=== PATIENT | male | born 1935 | race Caucasian/White ===

== ENCOUNTER 2018-01-15 11:28 | Inpatient (IN) ==
[2018-01-15 12:32] LABS: Basophils % 0.3 %; Eosinophils # 0.3 K/mcL (0.0-0.6); Eosinophils % 4.8 %; Hematocrit 31.3 % (37.5-50.1); Hemoglobin 9.9 g/dL (12.9-16.9); Immature Granulocytes % 0.2 % (0-4); Lymphocytes # 1.2 K/mcL (0.6-4.6); Lymphocytes % 19.9 %; Mean Corpuscular HGB Conc 31.6 g/dL (31.6-35.5); Mean Corpuscular Hemoglobin 33.6 pg (28.0-33.3); Mean Corpuscular Volume 106.1 fL (83.0-100.0); Mean Platelet Volume 11.2 fL (9.4-12.4); Monocytes # 0.8 K/mcL (0.0-1.3); Neutrophils # 3.9 K/mcL (1.6-8.9); Platelet Count 134 K/mcL (140-400); Red Blood Count 2.95 M/mcL (4.19-5.50); Red Cell Distribution Width 16.2 % (11.5-14.5); Segmented Neutrophils % 61.8 %
[2018-01-15 12:51] LABS: Troponin I 0.03 ng/mL (< 0.04)
[2018-01-15 12:59] LABS: Calcium 9.5 mg/dL (8.6-10.3); Potassium 4.5 mEq/L (3.5-5.1)
[2018-01-15] MEDS ORDERED: Furosemide 40 MG/4 ML VIAL IVP ONE (18:12)
--- NOTE | 2018-01-15 18:54 | Emergency Department Note ---
Disposition Clinical Impression: Scrotal swelling Fluid overload Qualifiers: Hypervolemia type: unspecified Qualified Code(s): E87.70 - Fluid overload, unspecified Leg wound, left Qualifiers: Encounter type: subsequent encounter Qualified Code(s): S81.802D - Unspecified open wound, left lower leg, subsequent encounter Disposition: Admitted As Inpatient Condition: Good Referrals: Karma Briseno [Primary Care Provider] - Forms: ED Satisfaction Letter Time of Disposition: 21:19 General Adult HPI - General Chief complaint: ED Shortness of Breath/Dyspnea Stated complaint: "quinn,swelling in legs,scrotum,abd" Source: patient, family Limitations: no limitations Nursing Notes Reviewed: Yes Vital Signs Reviewed: Yes - History of Present Illness HPI Narrative: Patient is an 82-year-old male that presents the emergency department with swelling of the lower extremities, genitals and lower abdomen. Patient states that this is been an ongoing issue for the past 6 months. However he states that he had been placed on Lasix and this was relatively well controlled until the past couple weeks. He states that he has been gaining a few pounds a week and this past week has gained 7 pounds. He states that when he starts to retain fluid he becomes more short of breath. Patient states that he was at an outside facility and was offered admission however he did not want to be admitted at that time because he did not anticipate that he was going to be admitted to the hospital when he went to the ER. However after talking to the patient today he is in agreement with being admitted to the hospital if we feel that this is necessary. Pain Scale: 0 - Related Data Home Medications Medication Instructions Recorded Confirmed Atenolol [Tenormin] 50 mg PO DAILY 01/11/18 01/15/18 Furosemide [Lasix] 20 mg PO BID 01/11/18 01/15/18 Loratadine [Claritin] 10 mg PO DAILY 01/11/18 01/15/18 Quinapril HCl [Accupril] 40 mg PO DAILY 01/11/18 01/15/18 hydroCHLOROthiazide 25 mg PO DAILY 01/11/18 01/15/18 [Hydrochlorothiazide] Aspirin Enteric Coated [Aspirin EC] 81 mg PO DAILY 01/15/18 01/15/18 Potassium Chloride [K-Tab ER] 20 meq PO DAILY 01/15/18 01/15/18 metOLazone [Zaroxolyn] 5 mg PO 2XW 01/15/18 01/15/18 Allergies Allergy/AdvReac Type Severity Reaction Status Date / Time No Known Allergies Allergy Verified 01/11/18 16:00 All systems ED: reviewed and negative except as stated. Constitutional: Reports: weight change Cardiovascular: Denies: chest pain Respiratory: Reports: dyspnea Gastrointestinal: Denies: abdominal pain, nausea, vomiting Past Medical History - Past Medical History Medical history: Reports: hypertension Psychiatric history: Reports: no psych history - Social History Smoking Status: Never smoker Smokeless Tobacco Status: No Alcohol use: Reports: none Drug use: Reports: none Physical Exam - General Limitations: no limitations General appearance: alert, in no apparent distress - Head Head exam: atraumatic, normocephalic - Eye Eye exam: Present: normal appearance, EOMI - Neck Neck exam: Present: normal inspection, full ROM, trachea midline - Respiratory Respiratory exam: Present: wheezes (Bilaterally). 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 Patient also has 2+ pitting edema and bilateral lower extremities all the way up into the thigh.) - Neurological Exam Neurological exam: Present: alert, oriented X3 - Psychiatric Psychiatric exam: Present: normal affect, normal mood - Skin Skin exam: Present: other (Patient is a large ulceration on the left lower extremity. Patient has multiple skin lesions on his face.) Course Vital Signs Temperature 97.6 F 01/15/18 11:40 Pulse Rate 68 01/15/18 11:40 Respiratory Rate 18 01/15/18 11:40 Blood Pressure 139/60 01/15/18 11:40 O2 Sat by Pulse Oximetry 94 01/15/18 11:40 Temperature 97.6 F 01/15/18 11:40 Pulse Rate 68 01/15/18 11:40 Respiratory Rate 18 01/15/18 11:40 Blood Pressure 139/60 01/15/18 11:40 O2 Sat by Pulse Oximetry 100 01/15/18 18:30 Medical Decision Making - [facility] Narrative Medical decision making narrative: Due to the patient presenting with increased shortness of breath and likely fluid overload we will obtain CBC, BMP, troponin, chest x-ray EKG and a BNP. The patient's EKG showed atrial fibrillation. The patient does appear to have an elevated BNP at 1060.Troponin was negative. The patient is mildly anemic at 9.9. The patient will be given a dose of Lasix here in the emergency department. Due to the patient having a large wound on his left leg will obtain wound cultures as well as placed the patient on clindamycin here in the emergency department. I feel this patient is fluid overloaded. The patient will need to be admitted to the hospital for further evaluation and management. Consult the hospitalist and they have accepted the patient to their service. The patient will be admitted to the hospital this time for further evaluation and management. - Lab Data Lab results reviewed: Yes I reviewed the patient's lab results. Result diagrams: 01/15/18 12:12 01/15/18 12:12 Lab Results 01/15/18 01/15/18 01/15/18 Range/Units 12:12 12:12 12:12 WBC 6.2 (4.3-11.1) K/mcL RBC 2.95 L (4.19-5.50) M/mcL Hgb 9.9 L (12.9-16.9) g/dL Hct 31.3 L (37.5-50.1) % MCV 106.1 H (83.0-100.0) fL MCH 33.6 H (28.0-33.3) pg MCHC 31.6 (31.6-35.5) g/dL RDW 16.2 H (11.5-14.5) % Plt Count 134 L (140-400) K/mcL MPV 11.2 (9.4-12.4) fL Immature Gran % 0.2 (0-4) % Seg Neutrophils % 61.8 % Lymphocytes % 19.9 % Monocytes % 13.0 % Eosinophils % 4.8 % Basophils % 0.3 % Neutrophils # 3.9 (1.6-8.9) K/mcL Lymphocytes # 1.2 (0.6-4.6) K/mcL Monocytes # 0.8 (0.0-1.3) K/mcL Eosinophils # 0.3 (0.0-0.6) K/mcL Basophils # 0.0 (0.0-0.2) K/mcL Sodium 137 (136-145) mEq/L Potassium 4.5 (3.5-5.1) mEq/L Chloride 102 (98-107) mEq/L Carbon Dioxide 27 (23-29) mEq/L BUN 59 H (8-23) mg/dL Creatinine 2.30 H (0.70-1.30) mg/dL Est GFR ( Amer) 33 L (> 60) Est GFR (Non-Af Amer) 27 L (> 60) BUN/Creatinine Ratio 26 (6-26) Glucose 100 (70-105) mg/dL Calculated Osmolality 301 H (280-300) Lactic Acid 1.0 (0.5-2.2) mmol/L Calcium 9.5 (8.6-10.3) mg/dL Troponin I 0.03 (< 0.04) ng/mL B-Natriuretic Peptide (Less than 100) pg/mL 01/15/18 Range/Units 12:12 WBC (4.3-11.1) K/mcL RBC (4.19-5.50) M/mcL Hgb (12.9-16.9) g/dL Hct (37.5-50.1) % MCV (83.0-100.0) fL MCH (28.0-33.3) pg MCHC (31.6-35.5) g/dL RDW (11.5-14.5) % Plt Count (140-400) K/mcL MPV (9.4-12.4) fL Immature Gran % (0-4) % Seg Neutrophils % % Lymphocytes % % Monocytes % % Eosinophils % % Basophils % % Neutrophils # (1.6-8.9) K/mcL Lymphocytes # (0.6-4.6) K/mcL Monocytes # (0.0-1.3) K/mcL Eosinophils # (0.0-0.6) K/mcL Basophils # (0.0-0.2) K/mcL Sodium (136-145) mEq/L Potassium (3.5-5.1) mEq/L Chloride (98-107) mEq/L Carbon Dioxide (23-29) mEq/L BUN (8-23) mg/dL Creatinine (0.70-1.30) mg/dL Est GFR ( Amer) (> 60) Est GFR (Non-Af Amer) (> 60) BUN/Creatinine Ratio (6-26) Glucose (70-105) mg/dL Calculated Osmolality (280-300) Lactic Acid (0.5-2.2) mmol/L Calcium (8.6-10.3) mg/dL Troponin I (< 0.04) ng/mL B-Natriuretic Peptide 1060 H (Less than 100) pg/mL - Radiology Data Radiology results reviewed: Yes I reviewed the patient's radiology results. Chest X-Ray 01/15/18 11:46 IMPRESSION: Stable exam from 01/11/2018 with mild pulmonary vascular congestion without overt pulmonary edema along with small right pleural effusion and mild likely bibasilar atelectasis. Stable cardiomegaly. D/ / 01/15/2018 14:09:41 Ezio Mon MD / [facility] Interpreting Provider: Ezio Mon MD - EKG Data EKG #1 EKG attestation: Yes I reviewed and interpreted this EKG. EKG results narrative: Patient's EKG shows atrial fibrillation at a rate of 62 bpm, QRS duration 92, QTC of 411. There is no evidence of STEMI on EKG.
[2018-01-15] MEDS ORDERED: Clindamycin 600 MG/50 ML 600 MG/50 ML IV.SOLN IVPB ONE (19:53)
--- NOTE | 2018-01-15 22:30 | Emergency Department Note ---
Disposition Clinical Impression: Scrotal swelling Fluid overload Qualifiers: Hypervolemia type: unspecified Qualified Code(s): E87.70 - Fluid overload, unspecified Leg wound, left Qualifiers: Encounter type: subsequent encounter Qualified Code(s): S81.802D - Unspecified open wound, left lower leg, subsequent encounter Disposition: Admitted As Inpatient Condition: Good General Adult HPI - General Chief complaint: ED Shortness of Breath/Dyspnea Stated complaint: "quinn,swelling in legs,scrotum,abd" Source: patient, family Limitations: no limitations - History of Present Illness Pain Scale: 3 - Related Data Home Medications Medication Instructions Recorded Confirmed Atenolol [Tenormin] 50 mg PO DAILY 01/11/18 01/15/18 Furosemide [Lasix] 20 mg PO BID 01/11/18 01/15/18 Loratadine [Claritin] 10 mg PO DAILY 01/11/18 01/15/18 Quinapril HCl [Accupril] 40 mg PO DAILY 01/11/18 01/15/18 hydroCHLOROthiazide 25 mg PO DAILY 01/11/18 01/15/18 [Hydrochlorothiazide] Aspirin Enteric Coated [Aspirin EC] 81 mg PO DAILY 01/15/18 01/15/18 Potassium Chloride [K-Tab ER] 20 meq PO DAILY 01/15/18 01/15/18 metOLazone [Zaroxolyn] 5 mg PO 2XW 01/15/18 01/15/18 Allergies Allergy/AdvReac Type Severity Reaction Status Date / Time No Known Allergies Allergy Verified 01/11/18 16:00 Constitutional: Reports: weight change Cardiovascular: Denies: chest pain Respiratory: Reports: dyspnea Gastrointestinal: Denies: abdominal pain, nausea, vomiting Integumentary: Reports: other Past Medical History - Past Medical History Medical history: Reports: hypertension Psychiatric history: Reports: no psych history - Social History Smoking Status: Never smoker Smokeless Tobacco Status: No Alcohol use: Reports: none Drug use: Reports: none Physical Exam - General Limitations: no limitations General appearance: alert, in no apparent distress Course Vital Signs Temperature 97.6 F 01/15/18 11:40 Pulse Rate 68 01/15/18 11:40 Respiratory Rate 18 01/15/18 11:40 Blood Pressure 139/60 01/15/18 11:40 O2 Sat by Pulse Oximetry 94 01/15/18 11:40 Temperature 97.5 F L 01/15/18 22:13 Pulse Rate 77 01/15/18 22:13 Respiratory Rate 16 01/15/18 22:13 Blood Pressure 108/38 01/15/18 22:13 O2 Sat by Pulse Oximetry 93 01/15/18 22:13 Oxygen Delivery Oxygen Delivery Room Air Medical Decision Making - Lab Data Result diagrams: 01/15/18 12:12 01/15/18 12:12 Lab Results 01/15/18 01/15/18 01/15/18 Range/Units 12:12 12:12 12:12 WBC 6.2 (4.3-11.1) K/mcL RBC 2.95 L (4.19-5.50) M/mcL Hgb 9.9 L (12.9-16.9) g/dL Hct 31.3 L (37.5-50.1) % MCV 106.1 H (83.0-100.0) fL MCH 33.6 H (28.0-33.3) pg MCHC 31.6 (31.6-35.5) g/dL RDW 16.2 H (11.5-14.5) % Plt Count 134 L (140-400) K/mcL MPV 11.2 (9.4-12.4) fL Immature Gran % 0.2 (0-4) % Seg Neutrophils % 61.8 % Lymphocytes % 19.9 % Monocytes % 13.0 % Eosinophils % 4.8 % Basophils % 0.3 % Neutrophils # 3.9 (1.6-8.9) K/mcL Lymphocytes # 1.2 (0.6-4.6) K/mcL Monocytes # 0.8 (0.0-1.3) K/mcL Eosinophils # 0.3 (0.0-0.6) K/mcL Basophils # 0.0 (0.0-0.2) K/mcL Sodium 137 (136-145) mEq/L Potassium 4.5 (3.5-5.1) mEq/L Chloride 102 (98-107) mEq/L Carbon Dioxide 27 (23-29) mEq/L BUN 59 H (8-23) mg/dL Creatinine 2.30 H (0.70-1.30) mg/dL Est GFR ( Amer) 33 L (> 60) Est GFR (Non-Af Amer) 27 L (> 60) BUN/Creatinine Ratio 26 (6-26) Glucose 100 (70-105) mg/dL Calculated Osmolality 301 H (280-300) Lactic Acid 1.0 (0.5-2.2) mmol/L Calcium 9.5 (8.6-10.3) mg/dL Troponin I 0.03 (< 0.04) ng/mL B-Natriuretic Peptide (Less than 100) pg/mL 01/15/18 Range/Units 12:12 WBC (4.3-11.1) K/mcL RBC (4.19-5.50) M/mcL Hgb (12.9-16.9) g/dL Hct (37.5-50.1) % MCV (83.0-100.0) fL MCH (28.0-33.3) pg MCHC (31.6-35.5) g/dL RDW (11.5-14.5) % Plt Count (140-400) K/mcL MPV (9.4-12.4) fL Immature Gran % (0-4) % Seg Neutrophils % % Lymphocytes % % Monocytes % % Eosinophils % % Basophils % % Neutrophils # (1.6-8.9) K/mcL Lymphocytes # (0.6-4.6) K/mcL Monocytes # (0.0-1.3) K/mcL Eosinophils # (0.0-0.6) K/mcL Basophils # (0.0-0.2) K/mcL Sodium (136-145) mEq/L Potassium (3.5-5.1) mEq/L Chloride (98-107) mEq/L Carbon Dioxide (23-29) mEq/L BUN (8-23) mg/dL Creatinine (0.70-1.30) mg/dL Est GFR ( Amer) (> 60) Est GFR (Non-Af Amer) (> 60) BUN/Creatinine Ratio (6-26) Glucose (70-105) mg/dL Calculated Osmolality (280-300) Lactic Acid (0.5-2.2) mmol/L Calcium (8.6-10.3) mg/dL Troponin I (< 0.04) ng/mL B-Natriuretic Peptide 1060 H (Less than 100) pg/mL Attestation Statement - Attestation Attestation: I examined this patient and my medical decision-making was reviewed with the Resident Physician. I agree with the documented findings, disposition and treatment plan as described except to the extent set forth below. Anasarca, acute kidney injury, infected leg ulcer. Refused admission and a Ivy a couple of days ago. On the appearance of the leg ulcer is not bad (some granulating tissue, pink not red tissue surrounding the ulcer without temperature change), the odor is unmistakable. Management discussed in detail with Dr. Read, admitted for further treatment.
[2018-01-15] MEDS ORDERED: Acetaminophen 325 MG TABLET PO PRN (23:38)
[2018-01-15] MEDS ORDERED: Naloxone 0.4 MG/ML INJ IVP PRN (23:38)
--- NOTE | 2018-01-16 00:30 | Internal Med History&Physical ---
Date of Encounter: 01/15/18 Time of Encounter: 22:00 Internal Medicine - H&P: HPI Chief complaint: Bilateral legs and scrotum swelling Admitted From: Home Plans for Post Hospital Care: Home History of present illness: Mr. Mazariegos is a 82 year old male presented to ER for bilateral leg and scrotum swelling for 7 days. Past medical history is significant for A. fib and hypertension and skin cancer. Patient said he was told possibly he has congestive heart failure but not confirmed. He started to have increased leg and scrotum swelling for 7 days. With a mild shortness of breath, especially on exertion. Patient had increased the weight for 7 pounds in last 7 days. Patient denies chest pain. Patient has a mild chronic cough. Patient also has a left lower extremity wound for about 20 years. Past Med Surg Social Fam HX - Past Medical History Medical history: atrial fibrillation, hypertension Psychiatric history: no psych history - Social History Smoking Status: Never smoker Smokeless Tobacco Status: No Alcohol use: none Drug use: none - Family History Father Hx Family Cancer: Yes Internal Medicine - H&P: Meds Atenolol [Tenormin] 50 mg PO DAILY 01/11/18 [History] Furosemide [Lasix] 20 mg PO BID 01/11/18 [History] Loratadine [Claritin] 10 mg PO DAILY 01/11/18 [History] Quinapril HCl [Accupril] 40 mg PO DAILY 01/11/18 [History] hydroCHLOROthiazide [Hydrochlorothiazide] 25 mg PO DAILY 01/11/18 [History] Aspirin Enteric Coated [Aspirin EC] 81 mg PO DAILY 01/15/18 [History] Potassium Chloride [K-Tab ER] 20 meq PO DAILY 01/15/18 [History] metOLazone [Zaroxolyn] 5 mg PO 2XW 01/15/18 [History] 3 Allergy/AdvReac Type Severity Reaction Status Date / Time No Known Allergies Allergy Verified 01/11/18 16:00 All Systems PM: A 10-system review of systems was performed and is negative for pertinent findings except as documented above in the HPI. - Constitutional Vitals: Temp Pulse Resp BP Pulse Ox 97.5 F L 77 16 108/38 93 01/15/18 22:13 01/15/18 22:13 01/15/18 22:13 01/15/18 22:13 01/15/18 22:13 General appearance: Present: A&O X 3, no acute distress, answers questions appropriately - Head Head exam: Present: atraumatic, normocephalic - Eye Eye exam: Present: PERRL, conjuntiva pink, sclera anicteric Pupils: Present: PERRL - Neck Neck exam general surgery: Present: supple, trachea midline. Absent: lymphadenopathy - Respiratory Respiratory exam: Present: CTAB. Absent: accessory muscle use, rales, rhonchi, wheezes - Cardiovascular Cardiovascular exam: Present: irregular rhythm, +S1, +S2. Absent: diastolic murmur, gallop, rubs, systolic murmur - GI/Abdominal GI/Abdominal exam: Present: normal bowel sounds, soft, no peritoneal signs. Absent: distended, tenderness - Extremities Exam Extremities exam: Present: pedal edema (Bilateral moderate to severe pitting edema with scrotum edema), warm, radial pulses palpable and symmetrical. Absent : calf tenderness, cyanotic Additional comments: Chronic wound on left lower leg, well dressed - Neurological Exam Neurological exam: Present: CN II-XII intact, oriented X3, no focal deficits. Absent: pronater drift, facial droop, speech deficit - Skin Skin exam: Present: dry, intact Internal Med - H&P Results - Labs CBC & Chem 7: 01/15/18 12:12 01/15/18 12:12 - Assessment and plan (1) CHF exacerbation Current Visit: Yes Status: Acute Assessment and plan: Patient has elevated BNP, increased bilateral leg and scrotum swelling. Chest x -ray shows pulmonary vascular congestion. Consider CHF exacerbation. - Place patient on Lasix IV 40 mg daily - Strict I and O. Fluid restriction diet. - Check echo in a.m. Qualifiers: Heart failure type: unspecified Qualified Code(s): I50.9 - Heart failure, unspecified (2) CKD (chronic kidney disease) Current Visit: Yes Status: Acute Assessment and plan: Creatinine level (2.3) is similar with that on 01/11. Remote baseline is 1.2. Closely monitor renal function and avoid the nephrotoxic medications Qualifiers: Chronic kidney disease stage: stage 4 (severe) Qualified Code(s): N18.4 - Chronic kidney disease, stage 4 (severe) (3) Leg wound, left Current Visit: Yes Status: Acute Assessment and plan: Patient said he has this chronic wound for 20 years. Patient has no systemic infection signs. We will consult wound care for further management. Qualifiers: Encounter type: subsequent encounter Qualified Code(s): S81.802D - Unspecified open wound, left lower leg, subsequent encounter (4) Atrial fibrillation Current Visit: No Status: Acute Assessment and plan: Patient said that he has A. fib for 20 years. He has discussed the with his cardiology regarding blood thinner use previously and he would not like to start blood thinner. Heart rate is well controlled. Patient is on aspirin, will continue Qualifiers: Atrial fibrillation type: chronic Qualified Code(s): I48.2 - Chronic atrial fibrillation (5) DVT prophylaxis Current Visit: Yes Status: Acute Assessment and plan: Heparin subcutaneously - Time Spent With Patient Total time spent is greater than 50% in coordination of care (as documented) at patient's floor/unit and/or counseling patient: 40 minutes Greater than 35 minutes
[2018-01-16] MEDS: *HR* Heparin 5,000 UNIT/ML VIAL SQ SCH ×2 (05:08→17:43)
[2018-01-16 06:00] LABS: Basophils % 0.4 %; Eosinophils # 0.3 K/mcL (0.0-0.6); Eosinophils % 6.3 %; Hematocrit 29.1 % (37.5-50.1); Hemoglobin 9.2 g/dL (12.9-16.9); Immature Granulocytes % 0.2 % (0-4); Lymphocytes # 0.9 K/mcL (0.6-4.6); Lymphocytes % 17.9 %; Mean Corpuscular HGB Conc 31.6 g/dL (31.6-35.5); Mean Corpuscular Hemoglobin 33.5 pg (28.0-33.3); Mean Corpuscular Volume 105.8 fL (83.0-100.0); Mean Platelet Volume 11.6 fL (9.4-12.4); Monocytes # 0.8 K/mcL (0.0-1.3); Monocytes % 15.6 %; Platelet Count 118 K/mcL (140-400); Red Blood Count 2.75 M/mcL (4.19-5.50); Red Cell Distribution Width 16.1 % (11.5-14.5); Segmented Neutrophils % 59.6 %
[2018-01-16 06:23] LABS: Magnesium 1.8 mg/dL (1.6-2.6); Potassium 4.1 mEq/L (3.5-5.1)
--- NOTE | 2018-01-16 07:16 | Electrocardiograph Report ---
[facility] Test Date: 2018-01-15 Pat Name: Ferdinand Mazariegos Department: 104 Room: 3B65 Gender: M [employer]: TMR : 1935 Requested By: Aidan James Order Number: [id number] Reading MD: Ambrosio Villafana Measurements Intervals [place] Rate: 62 P: [place]: 0 QRS: -73 QRSD: 92 T: 44 QT: 405 QTc: 411 Interpretive Statements ATRIAL FIBRILLATION LEFT ANTERIOR FASCICULAR BLOCK INFERIOR MYOCARDIAL INFARCTION, PROBABLY OLD ANTEROSEPTAL MYOCARDIAL INFARCTION, PROBABLY OLD Electronically Signed On 01-16-2018 7:15:14 EDT by Ambrosio Villafana
[2018-01-16] MEDS: Aspirin Enteric Coated 81 MG Tablet PO SCH (09:44)
[2018-01-16] MEDS: Lisinopril 20 MG TABLET PO SCH (09:44)
[2018-01-16] MEDS: hydroCHLOROthiazide 25 MG TABLET PO SCH (09:44)
[2018-01-16] MEDS: Loratadine 10 MG TABLET PO SCH (09:44)
[2018-01-16] MEDS: Furosemide 40 MG/4 ML VIAL IVP SCH (09:45)
--- NOTE | 2018-01-16 20:02 | Internal Med Progress Note ---
Date of Encounter: 01/16/18 Time of Encounter: 11:00 - Assessment and plan (1) CHF exacerbation Current Visit: Yes Status: Acute Assessment and plan: Previous BNP was 796 presented to ER with BNP of 1060. Apparently patient has a history of CHF and he has been noncompliant with medical care and medications. He continues to have bilateral lower extremity swelling as well as scrotal swelling. Chest x-ray does show pulmonary vascular congestion. We will continue to diurese the patient with 40 mg of Lasix continue to monitor creatinine closely since cranny is elevated. Strict LOC we will place on fluid restriction Daily weights Echo has been completed awaiting results Consult cardiology pending results of echo Oxygen as needed Monitor electrolytes Patient is able to urinate at this time however he may require Anaya placement due to swelling Qualifiers: Heart failure type: unspecified Qualified Code(s): I50.9 - Heart failure, unspecified (2) Atrial fibrillation Current Visit: No Status: Acute Assessment and plan: Patient said that he has A. fib for 20 years. He has discussed the with his cardiology regarding blood thinner use previously and he would not like to start blood thinner. Heart rate is well controlled. Patient is on aspirin, will continue Qualifiers: Atrial fibrillation type: chronic Qualified Code(s): I48.2 - Chronic atrial fibrillation (3) Leg wound, left Current Visit: Yes Status: Acute Assessment and plan: Patient said he has this chronic wound for 20 years. Patient has no systemic infection signs. We will consult wound care for further management. Qualifiers: Encounter type: subsequent encounter Qualified Code(s): S81.802D - Unspecified open wound, left lower leg, subsequent encounter (4) CKD (chronic kidney disease) Current Visit: Yes Status: Acute Assessment and plan: Creatinine level (2.3) is similar with that on 01/11. Remote baseline is 1.2. We will monitor creatinine Continue to diurese patient. Consult nephrology as needed Avoid nephrotoxins Qualifiers: Chronic kidney disease stage: stage 4 (severe) Qualified Code(s): N18.4 - Chronic kidney disease, stage 4 (severe) (5) DVT prophylaxis Current Visit: Yes Status: Acute - Time Spent With Patient Total time spent is greater than 50% in coordination of care (as documented) at patient's floor/unit and/or counseling patient: - Subjective Interval history: This patient is new to me I did review medical records. According to EC W it appears the patient was at the emergency department on 01/11 with increasing swelling especially stents will region and having difficulty urinating. According to primary care visit appears the patient has had a 418 pound weight gain since 10/27/17. According to primary care records patient does have CHF is currently taking Lasix however patient is noncompliant does not monitor fluid or sodium intake. According to PCP records patient has not been compliant with medical care. He does have a history of CHF A. fib and renal failure. Apparently when patient was evaluated by the ER physician on it was suggested that he be admitted for further evaluations however patient left AGAINST MEDICAL ADVICE. Lab work in the ER at that time showed a BNP of 796 EKG with A. fib and renal failure. He presented to ER with complaints of lower shimmy swelling as well as scrotal swelling Patient continues to have lower extremity swelling as well as scrotal swelling. He has area on his leg that is weeping. He denies any pain or discomfort at this time. He does report that his breathing has improved - Constitutional Vitals: Temp Pulse Resp BP Pulse Ox 97.9 F 69 16 114/52 97 01/16/18 19:00 01/16/18 19:00 01/16/18 19:00 01/16/18 19:00 01/16/18 19:00 General appearance: Present: A&O X 3, no acute distress, answers questions appropriately - Head Head exam: Present: atraumatic, normocephalic - Eye Eye exam: Present: PERRL, conjuntiva pink, sclera anicteric Pupils: Present: PERRL - Neck Neck exam general surgery: Present: supple, trachea midline. Absent: lymphadenopathy - Respiratory Respiratory exam: Present: CTAB. Absent: accessory muscle use, rales, rhonchi, wheezes - Cardiovascular Cardiovascular exam: Present: RRR, +S1, +S2. Absent: diastolic murmur, gallop, rubs, systolic murmur - GI/Abdominal GI/Abdominal exam: Present: normal bowel sounds, soft, no peritoneal signs. Absent: distended, tenderness - exam: Present: scrotal swelling External exam: Present: swelling - Extremities Exam Extremities exam: Present: pedal edema, warm, radial pulses palpable and symmetrical. Absent: calf tenderness, cyanotic Additional comments: +2 pitting edema up to thighs bilaterally left lower leg jasbir Internal Medicine: Result - Labs CBC & Chem 7: 01/16/18 05:40 01/16/18 05:40 Labs: Short CBC 01/16/18 Range/Units 05:40 WBC 5.1 (4.3-11.1) K/mcL Hgb 9.2 L (12.9-16.9) g/dL Hct 29.1 L (37.5-50.1) % Plt Count 118 L (140-400) K/mcL Neutrophils # 3.0 (1.6-8.9) K/mcL BMP 01/16/18 05:40 Sodium 140 Potassium 4.1 Chloride 105 Carbon Dioxide 28 BUN 59 H Creatinine 2.22 H Glucose 92 Calcium 9.0 Consult Discharge Plan - Plan Referrals: Karma Briseno [Primary Care Provider] -
[2018-01-17] MEDS: *HR* Heparin 5,000 UNIT/ML VIAL SQ SCH ×2 (06:15→17:42)
[2018-01-17] MEDS: Furosemide 40 MG/4 ML VIAL IVP SCH (08:35)
[2018-01-17] MEDS: hydroCHLOROthiazide 25 MG TABLET PO SCH (08:35)
[2018-01-17] MEDS: Aspirin Enteric Coated 81 MG Tablet PO SCH (08:35)
[2018-01-17] MEDS: Lisinopril 20 MG TABLET PO SCH (08:35)
[2018-01-17] MEDS: Loratadine 10 MG TABLET PO SCH (08:35)
--- NOTE | 2018-01-17 10:17 | Internal Med Progress Note ---
Date of Encounter: 01/17/18 Time of Encounter: 10:17 - Assessment and plan (1) CHF exacerbation Current Visit: Yes Status: Acute Assessment and plan: Previous BNP was 796 presented to ER with BNP of 1060. Apparently patient has a history of CHF and he has been noncompliant with medical care and medications. He continues to have bilateral lower extremity swelling as well as scrotal swelling. Chest x-ray does show pulmonary vascular congestion. We will continue to diurese the patient with 40 mg of Lasix continue to monitor creatinine closely since cranny is elevated. Strict LOC we will place on fluid restriction Daily weights Echo has been completed awaiting results Consult cardiology Oxygen as needed Monitor electrolytes Patient is able to urinate at this time however he may require Anaya placement due to swelling Qualifiers: Heart failure type: unspecified Qualified Code(s): I50.9 - Heart failure, unspecified (2) Atrial fibrillation Current Visit: No Status: Acute Assessment and plan: Patient said that he has A. fib for 20 years. He has discussed the with his cardiology regarding blood thinner use previously and he would not like to start blood thinner. Heart rate is well controlled. Patient is on aspirin, will continue Qualifiers: Atrial fibrillation type: chronic Qualified Code(s): I48.2 - Chronic atrial fibrillation (3) Leg wound, left Current Visit: Yes Status: Acute Assessment and plan: Patient said he has this chronic wound for 20 years. Patient has no systemic infection signs. We will consult wound care for further management. Qualifiers: Encounter type: subsequent encounter Qualified Code(s): S81.802D - Unspecified open wound, left lower leg, subsequent encounter (4) CKD (chronic kidney disease) Current Visit: Yes Status: Acute Assessment and plan: Creatinine level (2.3) is similar with that on 01/11. Remote baseline is 1.2. Today 2.8 We will monitor creatinine Continue to diurese patient. Consult nephrology as needed Avoid nephrotoxins monitor weight /monitor intake output Qualifiers: Chronic kidney disease stage: stage 4 (severe) Qualified Code(s): N18.4 - Chronic kidney disease, stage 4 (severe) (5) DVT prophylaxis Current Visit: Yes Status: Acute Assessment and plan: Heparin subcutaneously - Time Spent With Patient Total time spent is greater than 50% in coordination of care (as documented) at patient's floor/unit and/or counseling patient: - Subjective Interval history: Patient examined at bedside. Patient sitting up on bedside eating breakfast. Swelling seems to have improved he feels he can breathe much better. - Constitutional Vitals: Temp Pulse Resp BP Pulse Ox 97.5 F L 67 15 137/58 91 01/17/18 06:56 01/17/18 06:56 01/17/18 06:56 01/17/18 06:56 01/17/18 08:45 General appearance: Present: A&O X 3, no acute distress, answers questions appropriately - Head Head exam: Present: atraumatic, normocephalic - Eye Eye exam: Present: PERRL, conjuntiva pink, sclera anicteric Pupils: Present: PERRL - Neck Neck exam general surgery: Present: supple, trachea midline. Absent: lymphadenopathy - Respiratory Respiratory exam: Present: rales. Absent: accessory muscle use, rhonchi, wheezes - Cardiovascular Cardiovascular exam: Present: RRR, +S1, +S2. Absent: diastolic murmur, gallop, rubs, systolic murmur - GI/Abdominal GI/Abdominal exam: Present: normal bowel sounds, soft, no peritoneal signs. Absent: distended, tenderness - Extremities Exam Extremities exam: Present: warm, radial pulses palpable and symmetrical. Absent : calf tenderness, cyanotic, pedal edema - Neurological Exam Neurological exam: Present: CN II-XII intact, oriented X3, no focal deficits. Absent: pronater drift, facial droop, speech deficit Internal Medicine: Result - Labs CBC & Chem 7: 01/17/18 16:38 01/17/18 16:38 Consult Discharge Plan - Plan Referrals: Karma Briseno [Primary Care Provider] -
[2018-01-17 16:56] LABS: Basophils % 0.4 %; Eosinophils # 0.4 K/mcL (0.0-0.6); Eosinophils % 6.9 %; Hematocrit 30.2 % (37.5-50.1); Hemoglobin 9.7 g/dL (12.9-16.9); Immature Granulocytes % 0.4 % (0-4); Lymphocytes # 1.2 K/mcL (0.6-4.6); Lymphocytes % 21.2 %; Mean Corpuscular HGB Conc 32.1 g/dL (31.6-35.5); Mean Corpuscular Hemoglobin 34.6 pg (28.0-33.3); Mean Corpuscular Volume 107.9 fL (83.0-100.0); Mean Platelet Volume 10.8 fL (9.4-12.4); Monocytes # 0.8 K/mcL (0.0-1.3); Monocytes % 14.5 %; Neutrophils # 3.1 K/mcL (1.6-8.9); Platelet Count 120 K/mcL (140-400); Red Cell Distribution Width 15.9 % (11.5-14.5); Segmented Neutrophils % 56.6 %
[2018-01-17 17:15] LABS: Calcium 9.1 mg/dL (8.6-10.3)
[2018-01-18 06:23] LABS: Basophils % 0.4 %; Eosinophils # 0.4 K/mcL (0.0-0.6); Eosinophils % 7.9 %; Hematocrit 28.9 % (37.5-50.1); Hemoglobin 9.3 g/dL (12.9-16.9); Immature Granulocytes % 0.4 % (0-4); Lymphocytes # 1.2 K/mcL (0.6-4.6); Lymphocytes % 23.6 %; Mean Corpuscular HGB Conc 32.2 g/dL (31.6-35.5); Mean Corpuscular Hemoglobin 34.3 pg (28.0-33.3); Mean Corpuscular Volume 106.6 fL (83.0-100.0); Monocytes # 0.7 K/mcL (0.0-1.3); Monocytes % 13.9 %; Neutrophils # 2.8 K/mcL (1.6-8.9); Platelet Count 121 K/mcL (140-400); Red Blood Count 2.71 M/mcL (4.19-5.50); Red Cell Distribution Width 15.9 % (11.5-14.5); Segmented Neutrophils % 53.8 %
[2018-01-18] MEDS: *HR* Heparin 5,000 UNIT/ML VIAL SQ SCH ×2 (06:25→16:54)
[2018-01-18 06:44] LABS: Calcium 8.9 mg/dL (8.6-10.3); Potassium 3.7 mEq/L (3.5-5.1)
[2018-01-18] MEDS: hydroCHLOROthiazide 25 MG TABLET PO SCH (08:40)
[2018-01-18] MEDS: Aspirin Enteric Coated 81 MG Tablet PO SCH (08:40)
[2018-01-18] MEDS: Lisinopril 20 MG TABLET PO SCH (08:40)
[2018-01-18] MEDS: Loratadine 10 MG TABLET PO SCH (08:40)
[2018-01-18] MEDS: Furosemide 40 MG/4 ML VIAL IVP SCH (08:41)
[2018-01-18] MEDS: metOLazone 5 MG TABLET PO SCH (08:45)
--- NOTE | 2018-01-18 12:07 | Cardiology Consult Note ---
<Adelia Arizmendi - Last Filed: 01/18/18 12:02> Date of Encounter: 01/18/18 Time of Encounter: 11:00 Assessment and Plan (1) CHF exacerbation Current Visit: Yes Status: Acute Per cardiology: -Reports increased shortness of breath, abodminal girth, scrotal edema, leg edema. -Reports symptoms progressive over the past few months. -TTE with LVEF 60-65%, mild concentric LVH, indeterminate diastolic function, moderately dilated RV with moderate hypokinesis, atypical septal motion with a D shaped septum during diastole consistent with RV volume overload, severe bi- atrial enlargement, mild MR, mildly sclerotic AV leaflets, moderate to severe TR , severe PH, IVC dilated, no segmental wall motion abnormalities. -Volume overloaded on exam. -Chest x-ray with mild pulmonary vascular congestion, small right pleural effusion. -ON IV lasix and metalazone twice weekly. -Currently net negative 2620ml -Agree with IV diuresis. -Strict I/Os, fluid restriction, daily weights. -Will continue to monitor. Qualifiers: Heart failure type: right-sided Qualified Code(s): I50.813 - Acute on chronic right heart failure (2) KASI (acute kidney injury) Current Visit: Yes Status: Acute Per cardiology: -Creatinine 1.2 08/2017, today 2.1 -On lisinopril, HCTZ, IV lasix. -Will stop lisinopril and HCTZ. -Recommend neprhology consult. (3) Atrial fibrillation Current Visit: No Status: Chronic Per cardiology: -Known history of a.fib. On beta brad. -CHads 2 vasc score 4 (age, HTN, CHF). Not on anticoagulation due to patient's refusal. Patient educated on greatly increased risk of CVA/embolic event while not on anticoagulation. Patient states understanding -Of note, had nocturnal pauses up to 4.5 seconds. -Average HR previous 12 hours noted to be 66, a.fib. -Discussed and reviewed with , will decrease atenolol to 25mg daily. -Will continue to monitor. -Recommend outpatient sleep study. Qualifiers: Atrial fibrillation type: chronic Qualified Code(s): I48.2 - Chronic atrial fibrillation Discussion w patient/family: The assessment and plan as outlined above was discussed with the patient who expressed understanding and agreement. All questions were answered. Thank you for involving us in the care of your patient. Please call with any questions. Discussed and reviewed with . History of Present Illness Consult date: 01/17/18 Requesting physician: Apolonia Natarajan Consult reason: CHF Chief complaint: shortness of breath, edema History of present illness: Mr. Mazariegos is a 82 year old male with a relevant past medical history of CHF, HTN , asthma, skin cancer. Patient presented to [facility] with complaints of increased shortness of breath and increased edema. Patient reports symptoms have been progressive over th past several months. Patient reports increased abdominal girth, scrotal edema, and leg edema. Patinet also reports weight gain, unable to quantify how much weight gain. Patient reports today, shortness of breath is somewhat imrpoved. Patient also reports a.fib. and refuses anticoagulation. Past Med Surg Social Fam HX - Past Medical History Attestation: Yes The following information was validated with the patient. Source: patient, old records reviewed Medical history: atrial fibrillation, CHF, hypertension Psychiatric history: no psych history - Social History Smoking Status: Never smoker Smokeless Tobacco Status: No Alcohol use: none Drug use: none - Family History Father Hx Family Cancer: Yes Medications and Allergies Atenolol [Tenormin] 50 mg PO DAILY 01/11/18 [History] Furosemide [Lasix] 20 mg PO BID 01/11/18 [History] Loratadine [Claritin] 10 mg PO DAILY 01/11/18 [History] Quinapril HCl [Accupril] 40 mg PO DAILY 01/11/18 [History] hydroCHLOROthiazide [Hydrochlorothiazide] 25 mg PO DAILY 01/11/18 [History] Aspirin Enteric Coated [Aspirin EC] 81 mg PO DAILY 01/15/18 [History] Potassium Chloride [K-Tab ER] 20 meq PO DAILY 01/15/18 [History] metOLazone [Zaroxolyn] 5 mg PO 2XW 01/15/18 [History] 3 Allergy/AdvReac Type Severity Reaction Status Date / Time No Known Allergies Allergy Verified 01/11/18 16:00 All Systems Review: The remainder of the systems were reviewed and are negative - Constitutional Constitutional: weight gain - Cardiovascular Cardiovascular: as per HPI, dyspnea on exertion, leg edema Physical Examination Vital Signs, Last 4 Hours Temp Pulse Resp BP Pulse Ox 01/18/18 12:00 97.4 F L 62 16 103/52 96 01/18/18 08:39 98.3 F 64 17 121/66 94 General: Conversant, No Apparent Distress HEENT: Atraumatic, Normocephaly, Mucus Membranes Moist Neck: No JVD, Normal carotid pulses Cardiac: Normal S1 and S2, No Murmur, Other (Irregularly irregular) Lungs: Normal Breath Sounds, No Wheeze, Rales, Rhonchi Neuro: Alert and responsive, No focal deficits noted Abdomen: Soft, Non-Tender, Other (Increased abdominal girth, scrotal edema. ) Skin: Other (Bilateral lower extremities with red, flaky skin. Left lower extremity with bandage noted. ) Musculoskeletal: No Chest Wall Tenderness Extremities: No Clubbing, No Cyanosis, Normal Pulses, Other (Bilateral lower extremity edema. ) Results 01/18/18 05:39 01/18/18 05:39 Lab Results Impressions Echocardiogram 01/15/18 23:46 Impressions: LVEF 60-65%. Mild concentric left ventricular hypertrophy. Indeterminate diastolic function. Moderately dilated RV with moderate hypokinesis. Atypical septal motion with a D-shaped septum during diastole consistent with RV volume overload. Severe bi-atrial enlargement. Mild mitral regurgitation. Mildly sclerotic aortic valve leaflets. Moderate to severe tricuspid regurgitation. Severe pulmonary hypertension. RVSP 98 mmHg. The IVC is dilated. Left Ventricular Wall Motion: Rest Echo Findings All wall segments showed normal motion. Findings: Study Quality * Technically adequate exam. ECG Findings * Normal sinus rhythm. Left Ventricle * LVEF 60-65%. * Atypical septal motion. * Mild concentric left ventricular hypertrophy. * Indeterminate diastolic function. Right Ventricle * Moderately dilated RV with moderate hypokinesis. Left Atrium * Severely dilated left atrium. Right Atrium * Severely dilated right atrium. Mitral Valve * Normal mitral valve structure. * No mitral stenosis. * Mild mitral regurgitation. Aortic Valve * No aortic regurgitation. * Trileaflet aortic valve. * Mildly sclerotic aortic valve leaflets. * No aortic stenosis. Tricuspid Valve * Tricuspid valve not well visualized. * Moderate to severe tricuspid regurgitation. * Estimated RA pressure is 20 mmHg. * Estimated RVSP is 98 mmHg. * Severe pulmonary hypertension. Pulmonic Valve * Pulmonic valve is not well visualized. * No pulmonic stenosis. * Trace pulmonic regurgitation. Pulmonary Artery * Pulmonary artery not well visualized. Aorta * Normally sized aortic root. Pericardium * There is no pericardial effusion present. IVC * The IVC is dilated. * < 50% respiratory change. Active Medications Acetaminophen (Tylenol) 650 mg PO Q6HR PRN PRN Reason: Mild Pain/Fever Stop: 07/17/18 23:39 Aspirin (Aspirin Ec) 81 mg PO DAILY [facility] Stop: 07/18/18 09:01 Last Admin: 01/18/18 08:40 Dose: 81 mg Atenolol (Tenormin) 50 mg PO DAILY [facility] Stop: 07/18/18 09:01 Last Admin: 01/18/18 08:40 Dose: 50 mg Furosemide (Lasix) 40 mg IVP DAILY [facility] Stop: 07/18/18 09:01 Last Admin: 01/18/18 08:41 Dose: 40 mg Heparin Sodium (Porcine) (Heparin) 5,000 unit SQ Q12HR [facility] Stop: 07/18/18 06:01 Last Admin: 01/18/18 06:25 Dose: Not Given Hydrochlorothiazide (Hydrochlorothiazide) 25 mg PO DAILY [facility] PRN Reason: Protocol Stop: 07/18/18 09:01 Last Admin: 01/18/18 08:40 Dose: Not Given Lisinopril (Zestril) 40 mg PO DAILY [facility] Stop: 07/18/18 09:01 Last Admin: 01/18/18 08:40 Dose: 40 mg Loratadine (Claritin) 10 mg PO DAILY [facility] Stop: 07/18/18 09:01 Last Admin: 01/18/18 08:40 Dose: 10 mg Metolazone (Zaroxolyn) 5 mg PO 2XW [facility] Stop: 07/20/18 09:01 Last Admin: 01/18/18 08:45 Dose: 5 mg Naloxone HCl (Narcan) 0.4 mg IVP Q2MIN PRN PRN Reason: SEE COMMENTS Stop: 07/17/18 23:39 Potassium Chloride (Potassium Chloride) 20 meq PO DAILY [facility] Stop: 07/18/18 09:01 Last Admin: 01/18/18 08:40 Dose: 20 meq Laboratory Tests 08/19/17 01/15/18 01/15/18 08:07 12:12 12:12 Hgb Plt Count Creatinine 1.20 Troponin I 0.03 B-Natriuretic Peptide 1060 H 01/18/18 01/18/18 05:39 05:39 Hgb 9.3 L Plt Count 121 L Creatinine 2.10 H Troponin I B-Natriuretic Peptide - Imaging and Cardiology Chest Xray: report reviewed Echo: report reviewed - EKG Interpretation EKG results cardiology: personally reviewed (ECG with a.fib, HR 62.), other ( Telemetry reviewed with average HR previous 12 hours noted to be 66,a.fib. PVCs , couplets noted. Nocturnal pauses up to 4.5 seconds.) Consult Discharge Plan - Plan Referrals: Karma Briseno [Primary Care Provider] - <Vielka Pittman - Last Filed: 01/18/18 12:40> Date of Encounter: 01/18/18 - Attending Attestation I examined this patient and my medical decision-making was reviewed with the HEALTH EDUCATION ASSISTANT. I agree with the documented findings, disposition and treatment plan as described. Mr. Mazariegos presents with SOB and increased edema - abdominal, LE and scrotal. Echo demonstrated normal LV systolic function with RV dysfunction. He is volume overloaded on exam probably due to right heart failure. Agree with IV diuresis. Consider outpatient sleep study. Overnight noted to have up to 4.5 second pauses on telemetry. Recommend reducing dose of atenolol. Recommend outpatient sleep study. May consider outpatient holter. Discussed anticoagulation with patient in setting of known AFIB. He demonstrates understanding of the risks vs benefits. He declines full anticoagulation. Recommend aspirin. Will continue low dose BB for AFIB. Assessment and Plan Discussion w patient/family: The assessment and plan as outlined above was discussed with the patient and/or family members who expressed understanding and agreement. All questions were answered. Thank you for involving us in the care of your patient. Please call with any questions. History of Present Illness History of present illness: Mr. Mazariegos is a 82 year old male All Systems Review: The remainder of the systems were reviewed and are negative Physical Examination Vital Signs, Last 4 Hours Temp Pulse Resp BP Pulse Ox 01/18/18 12:00 97.4 F L 62 16 103/52 96 01/18/18 08:39 98.3 F 64 17 121/66 94 Results 01/18/18 05:39 01/18/18 05:39 Lab Results 01/17/18 01/17/18 01/18/18 16:38 16:38 05:39 WBC 5.5 5.2 Hgb 9.7 L 9.3 L Hct 30.2 L 28.9 L Plt Count 120 L 121 L Sodium 139 Potassium 4.0 Chloride 102 Carbon Dioxide 32 H BUN 57 H Creatinine 2.28 H Glucose 120 H Calcium 9.1 01/18/18 05:39 WBC Hgb Hct Plt Count Sodium 139 Potassium 3.7 Chloride 104 Carbon Dioxide 30 H BUN 56 H Creatinine 2.10 H Glucose 90 Calcium 8.9
--- NOTE | 2018-01-18 21:48 | Internal Med Progress Note ---
Date of Encounter: 01/18/18 Time of Encounter: 11:30 - Assessment and plan (1) CHF exacerbation Current Visit: Yes Status: Acute Assessment and plan: Previous BNP was 796 presented to ER with BNP of 1060. Apparently patient has a history of CHF and he has been noncompliant with medical care and medications. He continues to have bilateral lower extremity swelling as well as scrotal swelling. Chest x-ray does show pulmonary vascular congestion. We will continue to diurese the patient with 40 mg of Lasix continue to monitor creatinine closely since cranny is elevated. Strict LOC we will place on fluid restriction Daily weights Echo Impressions: LVEF 60-65%. Mild concentric left ventricular hypertrophy. Indeterminate diastolic function. Moderately dilated RV with moderate hypokinesis. Atypical septal motion with a D-shaped septum during diastole consistent with RV volume overload. Severe bi-atrial enlargement. Mild mitral regurgitation. Mildly sclerotic aortic valve leaflets. Moderate to severe tricuspid regurgitation. Severe pulmonary hypertension. RVSP 98 mmHg. The IVC is dilated. Consult cardiology appreciate recommendations Oxygen as needed Monitor electrolytes Patient is able to urinate at this time however he may require Anaya placement due to swelling Qualifiers: Heart failure type: right-sided Qualified Code(s): I50.813 - Acute on chronic right heart failure (2) Atrial fibrillation Current Visit: No Status: Chronic Assessment and plan: Patient said that he has A. fib for 20 years. He has discussed the with his cardiology regarding blood thinner use previously and he would not like to start blood thinner. Heart rate is well controlled. Patient is on aspirin, will continue Continue with beta brad Per nephrology note patient had nocturnal causes of 24.5 seconds atenolol decreased to 25 mg daily Qualifiers: Atrial fibrillation type: chronic Qualified Code(s): I48.2 - Chronic atrial fibrillation (3) Leg wound, left Current Visit: Yes Status: Acute Assessment and plan: Patient said he has this chronic wound for 20 years. Wound culture did grow pseudomonas Klebsiella Proteus mirabilis and Staphylococcus- we will start on Zosyn renally dosed. We will consult infectious disease. Please follow-up tomorrow and make sure call was completed for consult Qualifiers: Encounter type: subsequent encounter Qualified Code(s): S81.802D - Unspecified open wound, left lower leg, subsequent encounter (4) KASI (acute kidney injury) Current Visit: Yes Status: Acute Assessment and plan: Creatinine level (2.3) is similar with that on 01/11. Remote baseline is 1.2. Today 2.8 We will monitor creatinine Continue to diurese patient. Consult nephrology. Please follow-up tomorrow make sure cause completed Avoid nephrotoxins monitor weight /monitor intake output (5) DVT prophylaxis Current Visit: Yes Status: Acute - Time Spent With Patient Total time spent is greater than 50% in coordination of care (as documented) at patient's floor/unit and/or counseling patient: - Subjective Interval history: Patient examined at bedside. Patient sitting up on bedside eating breakfast. Swelling seems to have improved he feels he can breathe much better - Constitutional Vitals: Temp Pulse Resp BP Pulse Ox 97.5 F L 95 16 103/70 95 01/18/18 19:40 01/18/18 19:40 01/18/18 19:40 01/18/18 19:40 01/18/18 19:40 General appearance: Present: A&O X 3, no acute distress, answers questions appropriately - Head Head exam: Present: atraumatic, normocephalic - Eye Eye exam: Present: PERRL, conjuntiva pink, sclera anicteric Pupils: Present: PERRL - Neck Neck exam general surgery: Present: supple, trachea midline. Absent: lymphadenopathy - Respiratory Respiratory exam: Present: rales. Absent: accessory muscle use, rhonchi, wheezes - Cardiovascular Cardiovascular exam: Present: RRR, +S1, +S2. Absent: diastolic murmur, gallop, rubs, systolic murmur - GI/Abdominal GI/Abdominal exam: Present: normal bowel sounds, soft, no peritoneal signs. Absent: distended, tenderness - Extremities Exam Extremities exam: Present: pedal edema, warm, radial pulses palpable and symmetrical. Absent: calf tenderness, cyanotic - Neurological Exam Neurological exam: Present: CN II-XII intact, oriented X3, no focal deficits. Absent: pronater drift, facial droop, speech deficit - Skin Skin exam: Present: dry, intact Internal Medicine: Result - Labs CBC & Chem 7: 01/18/18 05:39 01/18/18 05:39 Labs: Short CBC 01/18/18 Range/Units 05:39 WBC 5.2 (4.3-11.1) K/mcL Hgb 9.3 L (12.9-16.9) g/dL Hct 28.9 L (37.5-50.1) % Plt Count 121 L (140-400) K/mcL Neutrophils # 2.8 (1.6-8.9) K/mcL BMP 01/18/18 05:39 Sodium 139 Potassium 3.7 Chloride 104 Carbon Dioxide 30 H BUN 56 H Creatinine 2.10 H Glucose 90 Calcium 8.9 - Impressions Impressions Echocardiogram 01/15/18 23:46 Impressions: LVEF 60-65%. Mild concentric left ventricular hypertrophy. Indeterminate diastolic function. Moderately dilated RV with moderate hypokinesis. Atypical septal motion with a D-shaped septum during diastole consistent with RV volume overload. Severe bi-atrial enlargement. Mild mitral regurgitation. Mildly sclerotic aortic valve leaflets. Moderate to severe tricuspid regurgitation. Severe pulmonary hypertension. RVSP 98 mmHg. The IVC is dilated. Left Ventricular Wall Motion: Rest Echo Findings All wall segments showed normal motion. Findings: Study Quality * Technically adequate exam. ECG Findings * Normal sinus rhythm. Left Ventricle * LVEF 60-65%. * Atypical septal motion. * Mild concentric left ventricular hypertrophy. * Indeterminate diastolic function. Right Ventricle * Moderately dilated RV with moderate hypokinesis. Left Atrium * Severely dilated left atrium. Right Atrium * Severely dilated right atrium. Mitral Valve * Normal mitral valve structure. * No mitral stenosis. * Mild mitral regurgitation. Aortic Valve * No aortic regurgitation. * Trileaflet aortic valve. * Mildly sclerotic aortic valve leaflets. * No aortic stenosis. Tricuspid Valve * Tricuspid valve not well visualized. * Moderate to severe tricuspid regurgitation. * Estimated RA pressure is 20 mmHg. * Estimated RVSP is 98 mmHg. * Severe pulmonary hypertension. Pulmonic Valve * Pulmonic valve is not well visualized. * No pulmonic stenosis. * Trace pulmonic regurgitation. Pulmonary Artery * Pulmonary artery not well visualized. Aorta * Normally sized aortic root. Pericardium * There is no pericardial effusion present. IVC * The IVC is dilated. * < 50% respiratory change. Consult Discharge Plan - Plan Referrals: Karma Briseno [Primary Care Provider] -
[2018-01-19] MEDS ORDERED: Piperacillin/Tazobactam 3.375 GM in 0.9 % Sodium Chloride Mini Bag 100 ML IVPB SCH (06:00)
[2018-01-19] MEDS: *HR* Heparin 5,000 UNIT/ML VIAL SQ SCH ×2 (06:11→17:58)
[2018-01-19] MEDS: Loratadine 10 MG TABLET PO SCH (09:15)
[2018-01-19] MEDS: Furosemide 40 MG/4 ML VIAL IVP SCH (09:15)
[2018-01-19] MEDS: Aspirin Enteric Coated 81 MG Tablet PO SCH (09:15)
--- NOTE | 2018-01-19 10:26 | Cardiology Progress Note ---
Date of Encounter: 01/19/18 Time of Encounter: 08:45 Assessment and Plan (1) CHF exacerbation Current Visit: Yes Status: Acute Per cardiology: -Patient states symptoms are imrpoving today. -TTE with LVEF 60-65%, mild concentric LVH, indeterminate diastolic function, moderately dilated RV with moderate hypokinesis, atypical septal motion with a D shaped septum during diastole consistent with RV volume overload, severe bi- atrial enlargement, mild MR, mildly sclerotic AV leaflets, moderate to severe TR , severe PH, IVC dilated, no segmental wall motion abnormalities. -Volume overloaded on exam. -Chest x-ray with mild pulmonary vascular congestion, small right pleural effusion. -ON IV lasix and metalazone twice weekly. -Currently net negative 2895ml. -Agree with IV diuresis. -Strict I/Os, fluid restriction, daily weights. -Will continue to monitor. Qualifiers: Heart failure type: right-sided Qualified Code(s): I50.813 - Acute on chronic right heart failure (2) KASI (acute kidney injury) Current Visit: Yes Status: Acute Per cardiology: -Creatinine 1.2 08/2017, today 2.1. -Lsinopril, and HCTZ stopped yesterday. -Will check stat BMP (3) Atrial fibrillation Current Visit: No Status: Inactive Per cardiology: -Known history of a.fib. On beta brad. -CHads 2 vasc score 4 (age, HTN, CHF). Not on anticoagulation due to patient's refusal. Patient educated on greatly increased risk of CVA/embolic event while not on anticoagulation. Patient states understanding -Average HR previous 12 hours noted to be 63, a.fib. Nocturnal pauses improved, longest pause 2.3seconds. -Will continue to monitor. -Recommend outpatient sleep study. Qualifiers: Atrial fibrillation type: chronic Qualified Code(s): I48.2 - Chronic atrial fibrillation Discussion w patient/family: The assessment and plan as outlined above was discussed with the patient who expressed understanding and agreement. All questions were answered. Thank you for involving us in the care of your patient. Please call with any questions. Discussed and reviewed with . Subjective Principal diagnosis: CHF Interval history: Patient reports abdominal girth and swelling better today. Denies shortness of breath. Objective Vital Signs, Last 4 Hours Temp Pulse Resp BP Pulse Ox 01/19/18 07:20 97.5 F L 59 15 113/63 95 General: Conversant, No Apparent Distress HEENT: Atraumatic, Normocephaly, Mucus Membranes Moist Neck: No JVD, Normal carotid pulses Cardiac: Normal S1 and S2, No Murmur, Other (Irregularly irregular) Lungs: Normal Breath Sounds, No Wheeze, Rales, Rhonchi Neuro: Alert and responsive, No focal deficits noted Abdomen: Soft, Non-Tender Skin: No rashes noted on visualized skin Musculoskeletal: No Chest Wall Tenderness Extremities: No Clubbing, No Cyanosis, Normal Pulses, Other (Edema noted to bilateral legs, scrotum. ) Results 01/18/18 05:39 01/18/18 05:39 Active Medications Acetaminophen (Tylenol) 650 mg PO Q6HR PRN PRN Reason: Mild Pain/Fever Stop: 07/17/18 23:39 Aspirin (Aspirin Ec) 81 mg PO DAILY [facility] Stop: 07/18/18 09:01 Last Admin: 01/19/18 09:15 Dose: 81 mg Atenolol (Tenormin) 25 mg PO DAILY [facility] Stop: 07/21/18 09:01 Last Admin: 01/19/18 09:16 Dose: 25 mg Furosemide (Lasix) 40 mg IVP DAILY [facility] Stop: 07/18/18 09:01 Last Admin: 01/19/18 09:15 Dose: 40 mg Heparin Sodium (Porcine) (Heparin) 5,000 unit SQ Q12HR [facility] Stop: 07/18/18 06:01 Last Admin: 01/19/18 06:11 Dose: Not Given Piperacillin Sod/Tazobactam (Sod 3.375 gm/ Sodium Chloride) 100 mls @ 25 mls/ hr IVPB Q12HR [facility] Stop: 07/21/18 06:01 Last Admin: 01/19/18 05:27 Dose: 25 mls/hr Loratadine (Claritin) 10 mg PO DAILY [facility] Stop: 07/18/18 09:01 Last Admin: 01/19/18 09:15 Dose: 10 mg Metolazone (Zaroxolyn) 5 mg PO 2XW [facility] Stop: 07/20/18 09:01 Last Admin: 01/18/18 08:45 Dose: 5 mg Naloxone HCl (Narcan) 0.4 mg IVP Q2MIN PRN PRN Reason: SEE COMMENTS Stop: 07/17/18 23:39 Potassium Chloride (Potassium Chloride) 20 meq PO DAILY [facility] Stop: 07/18/18 09:01 Last Admin: 01/19/18 09:15 Dose: 20 meq Laboratory Tests 01/18/18 01/18/18 05:39 05:39 Hgb 9.3 L Creatinine 2.10 H - Imaging and Cardiology Chest Xray: report reviewed Echo: report reviewed - EKG Interpretation EKG results cardiology: other (Telemetry reviewed with average HR previous 12 hours noted to be 63, a.fib. PVCs and couplets noted.) Consult Discharge Plan - Plan Referrals: Karma Briseno [Primary Care Provider] -
--- NOTE | 2018-01-19 11:29 | Infectious Disease Consult ---
Date of Encounter: 01/19/18 Time of Encounter: 11:28 Assessment and Plan (1) Leg wound, left Status: Chronic Assessment and plan: Location: Anterior left lower leg. Secondary to previous trauma. Wound culture positive for MSSA, PSEA, K. oxytoca, and Proteus mirabilis. --> true infection vs. colonization. Etiology of non-healing status likely multifactorial: venous stasis + possible PAD + other (atypical mycobacterial infection vs. fungal vs. autoimmune). Low index of suspicion for acute infection despite positive wound culture. No surround cellulitis noted. No SIRS criteria. Consider imaging of the LLE to evaluate for underlying etiology. Get CT scan without contrast of the LLE. Recommend dermatology to evaluate for biopsy. Index of suspicion for pyoderma gangrenosum. Send for AFB, fungal, and 16S Ribosomal DNA PCR. Discontinue Zosyn and observe. May consider starting topical Bactroban and Gentamicin after evaluated by dermatology. Wound care team consulted for dressing recommendations. Monitor closely for signs of infection. Qualifiers: Encounter type: subsequent encounter Qualified Code(s): S81.802D - Unspecified open wound, left lower leg, subsequent encounter (2) CHF exacerbation Status: Acute Assessment and plan: Appears improved. Management per the primary and cardiology teams. Qualifiers: Heart failure type: right-sided Qualified Code(s): I50.813 - Acute on chronic right heart failure (3) Scrotal swelling Status: Resolved (4) CKD (chronic kidney disease) Status: Acute Assessment and plan: Monitor renal function and dose-adjust antibiotics. Avoid nephrotoxins as able. Qualifiers: Chronic kidney disease stage: stage 4 (severe) Qualified Code(s): N18.4 - Chronic kidney disease, stage 4 (severe) Infectious Disease HPI - Data of Consult Patient: new to practice Consult date: 01/19/18 Requesting Physician: Aysha Harrison CNP Primary Care Provider: Karma Birseno - Consult Narrative Reason for consult: LLE wound History of present illness: Mr. Mazariegos is a 82 year old male with a past medical history of hypertension, A. fib, recurrent skin cancer, CHF, chronic kidney disease, and chronic left lower extremity wound. The patient was admitted to the hospital January 15 for shortness of breath and edema. We are consulted January 19 for antibiotic recommendations for left lower extremity wound. Briefly, the patient is an 82-year-old male with past medical history as stated above. The patient presented to the emergency department at the request of his primary care provider with complaints of increased shortness of breath and swelling that has worsened over the past week. The patient states that in September, he was started on Lasix by his PCP for lower extremity swelling. He states that the Lasix initially worked very well and he lost 20 pounds in fluid in less than a month, but states that over the course of the past 3 months he has had progressively worsening edema despite the use of Lasix. Upon arrival to the ER, the patient is afebrile hemodynamically stable. Laboratory studies revealed a normal white blood cell count, but he does have thrombocytopenia. It also revealed an elevated serum creatinine reflective of his chronic kidney disease. BNP was over 1000. Chest x-ray showed mild pulmonary vascular congestion and mild bibasilar atelectasis as well as a small right pleural effusion. He was noted to have a chronic ulceration to the lower portion of the left lower extremity that the patient reported had in there for about 20 years. There is concern for infection so a wound culture was obtained and he was given a dose of clindamycin. He was admitted to the hospitalist service for further evaluation of his swelling and shortness of breath. Since admission, the patient has remained afebrile and hemodynamically stable. He underwent a transthoracic echocardiogram that showed an EF 60-65%. Cardiology has been consulted and has made recommendations. His wound culture came back positive for Pseudomonas, Klebsiella oxytoca, Proteus mirabilis, and MSSA. The wound care team has been consulted and has made recommendations for dressing changes. He is currently on IV Zosyn. We have asked to evaluate and make further recommendations. During my exam today, the patient endorses a history as stated above. He states that the left lower extremity wound has been waxing and waning for about 20 years now. He states he bumped it on a pile of wood and it initially was about the size of a pencil eraser and will scab over intermittently. He states he had seen the wound clinic at [facility] and had undergone subsequent debridements and dressings over the course of about 8 weeks, but he continued to have the wound and just stopped going. He denies any recent changes in the wound except some increased serous drainage since he started having this increase in swelling. He denies any fevers or chills or rigors. He denies any headache or neck pain. He denies any congestion, earache, or sore throat. He denies any pain in his chest, but does report some dyspnea on exertion. He denies cough area he denies any nausea or vomiting or diarrhea. He denies abdominal pain or urinary complaints. He states he is able to void without a problem. He denies any pain in his legs. He denies pain at the site of the ulceration. He states he has not required any antibiotic therapy in the past for this ulceration. He denies any testing regarding the ulcer. He denies any oral thrush or new skin lesions except as previously mentioned. He does have multiple lesions to the left side of his face that the patient states is skin cancer. He states he follows with a ferry engineer up in [place], but has not seen them in the past year. He states every time he goes he has multiple lesions removed. The patient lives at home with his . He denies any recent travel or exposure to animals. 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 He denies any tobacco, alcohol, or illicit drug use. CC: Aysha Harrison, TRUMAN Past Med Surg Social Fam HX - Past Medical History Attestation: Yes The following information was validated with the patient. 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, head, and neck ) Psychiatric history: no psych history - Past Surgical History Surgical History: other (Left face skin cancer removal) - Social History Smoking Status: Never smoker Smokeless Tobacco Status: No Alcohol use: none Drug use: none Occupational status: retired Current living situation: Home, With Family Activity Level: Independent ambulation Recent Out of Country Travel Within the Last 8 Weeks: No Exposure or Possible Exposure to Illness During Travel: No - Family History Father Hx Family Cancer: Yes Infectious Disease-CN:Meds Atenolol [Tenormin] 50 mg PO DAILY 01/11/18 [History] Furosemide [Lasix] 20 mg PO BID 01/11/18 [History] Loratadine [Claritin] 10 mg PO DAILY 01/11/18 [History] Quinapril HCl [Accupril] 40 mg PO DAILY 01/11/18 [History] hydroCHLOROthiazide [Hydrochlorothiazide] 25 mg PO DAILY 01/11/18 [History] Aspirin Enteric Coated [Aspirin EC] 81 mg PO DAILY 01/15/18 [History] Potassium Chloride [K-Tab ER] 20 meq PO DAILY 01/15/18 [History] metOLazone [Zaroxolyn] 5 mg PO 2XW 01/15/18 [History] 3 Allergy/AdvReac Type Severity Reaction Status Date / Time No Known Allergies Allergy Verified 01/11/18 16:00 All systems: reviewed and no additional remarkable complaints except as stated Exam - Constitutional Vitals: Temp Pulse Resp BP Pulse Ox 97.4 F L 63 16 118/65 93 01/19/18 11:03 01/19/18 11:03 01/19/18 11:03 01/19/18 11:03 01/19/18 11:03 General appearance: average body habitus, cooperative, no acute distress - Head Head exam: Present: atraumatic, normocephalic. Absent: normal inspection ( Multiple skin cancer lesions noted to the left forehead and parietal lesions.) - Eye Eye exam: Present: EOMI, normal appearance, PERRL Pupils: Present: normal accommodation - ENT ENT exam: Present: mucous membranes moist - Neck Neck exam: Present: normal inspection - Respiratory Respiratory exam: Present: CTAB. Absent: rales, respiratory distress, rhonchi, wheezes - Cardiovascular Cardiovascular exam: Present: irregular rhythm, +S1, +S2. Absent: tachycardia - GI/Abdominal GI/Abdominal exam: Present: normal bowel sounds, soft. Absent: distended, tenderness Additional comments: Mild edema noted to the penis and scrotum. - Extremities Exam Extremities exam: Present: pedal edema (1+ BLE). Absent: joint swelling, tenderness Additional comments: BLE venous stasis dermatitis. Large Stage II ulceration noted to the anterior aspect of the left lower extremity, just distal to the knee. Wound bed is moist, pink with periwound maceration. Serous yellow drainage noted on dressing. No surrounding erythema, warmth, or drainage. No foul odor noted. - Neurological Exam Neurological exam: Present: alert, oriented X3, no focal deficits - Psychiatric Psychiatric exam: Present: normal affect, normal mood - Skin Skin exam: Present: dry, intact, normal color, warm Infectious Disease CN: Results - Labs CBC & Chem 7: 01/20/18 09:58 01/20/18 09:58 Cultures: Cultures 01/15/18 21:03 Wound Culture - Final Left Leg Pseudomonas aeruginosa Klebsiella oxytoca Proteus mirabilis Staphylococcus aureus Consult Discharge Plan - Plan Referrals: Karma Briseno [Primary Care Provider] - - Attending Attestation I examined this patient and my medical decision-making was reviewed with the Resident Physician. I agree with the documented findings, disposition and treatment plan as described except to the extent set forth below. This is an addendum to original report dictated by Shira Daniel CNP. Please refer to [facility] note for full details. 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 Since then he has had this lesion that has never resolved. We were asked to evaluate the patient regarding lesion and antibiotic recommendations. Previous cultures noted for MSSA, pseudomonas aeruginosa that was pansensitive, Klebsiella oxytoca and Proteus mirabilis. At this point the lesion has been there for 20 years and a concern for fungal versus atypical mycobacterial versus noninfectious etiology. I think we will benefit from a biopsy of the lesion to see if that there is atypical infection versus autoimmune versus other. For now we will discontinue Zosyn but plan to either do topical antibiotics versus stopping antibiotics altogether. Await rheumatology recommendation.
[2018-01-19 11:39] LABS: Potassium 4.1 mEq/L (3.5-5.1)
[2018-01-19 11:40] LABS: Calcium 9.5 mg/dL (8.6-10.3)
--- NOTE | 2018-01-19 14:48 | Nephrology Consult Note ---
<Supriya Bocanegra - Last Filed: 01/19/18 18:00> Date of Encounter: 01/19/18 Time of Encounter: 14:42 Assessment and Plan (1) KASI (acute kidney injury) Status: Acute Serum Creat elevated in the setting of CHF with diuretics on board, sepsis from foot infection. Scr 2.27 GFR 28 today, 08/2017 Scr 1.20 GFR 58. Is urinating without difficulty, receiving 40 mg Lasix IVP daily. Fluid status is -255 today and is -2790 this stay. Will continue to diurese as much as patient can safely tolerate. Continue strict I/O's. Encouraged patient to use urinal. Will order urine lytes and UA to rule out other processes. Avoid Nephrotoxins. (2) Fluid overload Status: Acute EF 60-65%, will continue diuresis. Strict I/O. Fluid Restriction of 1.5 Liters. Qualifiers: Hypervolemia type: unspecified Qualified Code(s): E87.70 - Fluid overload, unspecified (3) Leg wound, left Status: Chronic per ID team. Qualifiers: Encounter type: subsequent encounter Qualified Code(s): S81.802D - Unspecified open wound, left lower leg, subsequent encounter History of Present Illness - Reason for Consult Consult date: 01/19/18 Requesting physician: Apolonia Natarajan - Chief Complaint HALIMA, swelling lower extremities - History of Present Illness 82 year old male presents to ER 01/15/18 with difficulty in breathing, bilateral lower leg and scrotum swelling. Denied chest pain. Patient reported legs feeling full for 1-2 days before coming to the ER, because he hoped the Lasix he takes at home would "help it". Was put on Lasix at home by PCP in September to help with fluid overload. Swelling did improve over time, but has recently gotten worse. Has never been seen by Nephrology before or does not recall any other kidney issues in the past. Denies use of NSAIDS or family history of kidney issues. Does have a wound to LLE. 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, head, and neck ) Psychiatric history: no psych history - Past Surgical History Surgical History: other (Left face skin cancer removal) - Social History Smoking Status: Never smoker Smokeless Tobacco Status: No Alcohol use: none Drug use: none - Family History Father Hx Family Cancer: Yes Medications and Allergies Atenolol [Tenormin] 50 mg PO DAILY 01/11/18 [History] Furosemide [Lasix] 20 mg PO BID 01/11/18 [History] Loratadine [Claritin] 10 mg PO DAILY 01/11/18 [History] hydroCHLOROthiazide [Hydrochlorothiazide] 25 mg PO DAILY 01/11/18 [History] Aspirin Enteric Coated [Aspirin EC] 81 mg PO DAILY 01/15/18 [History] Potassium Chloride [K-Tab ER] 20 meq PO DAILY 01/15/18 [History] Furosemide [Lasix] 40 mg PO DAILY #30 tablet 01/22/18 [Rx] metOLazone [Zaroxolyn] 5 mg PO 2XW #10 tablet 01/22/18 [Rx] 3 Allergy/AdvReac Type Severity Reaction Status Date / Time No Known Allergies Allergy Verified 01/11/18 16:00 Review of Systems All Systems: reviewed and no additional remarkable complaints except as stated Constitutional: weight gain, no chills, no fever(s) Cardiovascular: no chest pain, no lightheadedness, no palpitations Respiratory: no cough Gastrointestinal: loose stools, no nausea Genitourinary Male: no urinary frequency, no urinary hesitancy, no urinary incontinence, no urinary urgency Musculoskeletal: no back pain Exam - Vital Signs Vital signs: Initial Vital Signs Temp Pulse Resp BP Pulse Ox 97.6 F 68 18 139/60 94 01/15/18 11:40 01/15/18 11:40 01/15/18 11:40 01/15/18 11:40 01/15/18 11:40 Vital Signs - Last 8 Hours Temp Pulse Resp BP Pulse Ox 01/19/18 14:30 97.5 F L 61 15 118/64 93 01/19/18 11:03 97.4 F L 63 16 118/65 93 01/19/18 07:20 97.5 F L 59 15 113/63 95 Intake and Output 01/18/18 01/19/18 01/19/18 23:59 07:59 15:59 Intake Total 240 / 240 480 / 480 Output Total 310 / 310 600 / 600 375 / 375 Balance -310 / -310 -360 / -360 105 / 105 Intake: Oral 240 / 240 480 / 480 Output: Urine 310 / 310 600 / 600 375 / 375 Other: Meal Dinner Lunch Percent of Meal Consumed 65% 90% Weight 94.8 kg Patient Weight 01/19/18 23:59 Weight 94.8 kg - General Appearance General appearance: well-developed, well-nourished, chronically ill EENT: ATNC Neck: supple Respiratory: clear Cardiology: edema (noted to scrotum. +2 edema to bilateral entire lower extremities. ), normal S1, normal S2 Gastrointestinal: normoactive bowel sounds, no tenderness Integumentary: cool/clammy, ecchymotic (Ulcer noted to LLE, wrapped in Kerlix. ) Neurologic: alert and oriented x3 Psychiatric: mood/affect appropriate, cooperative Results - Lab Results 01/18/18 05:39 01/19/18 10:39 Most recent lab results Calcium 9.5 mg/dL (8.6-10.3) 01/19/18 10:39 Magnesium 1.8 mg/dL (1.6-2.6) 01/16/18 05:40 Consult Discharge Plan - Plan Instructions: Metolazone (By mouth), Furosemide (By mouth), Heart Failure (DC) , Chronic Kidney Disease (DC) Referrals: Checo Romo MD [Non-Partnered Physician] - 01/26/18 10:30 am Karma Briseno [Primary Care Provider] - 01/27/18 11:00 am Domingo Mae DO [Partnered Physician] - 01/26/18 11:00 am Adalberto Turcios MD [Partnered Physician] - (Please call the office on Thursday morning for to verify follow-up appointment.) Prescriptions: Furosemide [Lasix] 40 mg PO DAILY #30 tablet metOLazone [Zaroxolyn] 5 mg PO 2XW #10 tablet <Adalberto Turcios - Last Filed: 02/07/18 23:12> Date of Encounter: 01/19/18 Exam - Vital Signs Vital signs: Initial Vital Signs Temp Pulse Resp BP Pulse Ox 97.6 F 68 18 139/60 94 01/15/18 11:40 01/15/18 11:40 01/15/18 11:40 01/15/18 11:40 01/15/18 11:40 Results - Lab Results 01/22/18 06:17 01/22/18 06:17 Most recent lab results Calcium 9.3 mg/dL (8.6-10.3) 01/22/18 06:17 Magnesium 1.8 mg/dL (1.6-2.6) 01/20/18 09:58 Urine Creatinine 81 mg/dL 01/21/18 08:25 Urine Sodium 88.6 mEq/L 01/19/18 22:00 - Attending Attestation I examined this patient and my medical decision-making was reviewed with the Resident Physician/[employer]. I agree with the documented findings, disposition and treatment plan as described except to the extent set forth below. Pt seen and examined; 82 y o male admitted with SOB with LE and scrotal edema treated for CHF exacerbation with worsening renal function after diuresis. Renal consulted for further management. Another factor is foot infection. Agree with continued diuretics for now. will initiate KASI workup. Avoid nephrotoxins if possible. Strict I/Os needed. Will consider adding albumin to regimen to enhance diuresis and perhaps protect renal function as well.
--- NOTE | 2018-01-19 16:58 | Internal Med Progress Note ---
Date of Encounter: 01/19/18 Time of Encounter: 16:55 - Assessment and plan (1) CHF exacerbation Current Visit: Yes Status: Acute Assessment and plan: Presented with acute on chronic lower extremities and scrotum swelling. History of diastolic CHF, on diuretics. - History of atrial fibrillation, rate controlled, not on AC ( pt does not want to take AC). - Recent TTE revealed LV diastolic dysfunction, biventricular dilation, and the severe pulmonary hypertension. - Patient admitted he has been taking high salt diet recently. This could be the trigger of exacerbation. - Was on Lasix IV plus metolazone. volume overload improving. Still having mild fluid overload on physical exam today, will give 1 dose of metolazone 5 mg today, repeat a chest x-ray in a.m. Qualifiers: Heart failure type: right-sided Qualified Code(s): I50.813 - Acute on chronic right heart failure (2) Atrial fibrillation Current Visit: No Status: Chronic Assessment and plan: - rate Controlled, Pt had 1 episode of sinus pause on tele, beta brad was DC' d by cardiology. - ChADS vas score 4, he refused anticoagulate agent. Qualifiers: Atrial fibrillation type: chronic Qualified Code(s): I48.2 - Chronic atrial fibrillation (3) Leg wound, left Current Visit: No Status: Chronic Assessment and plan: - Chronic wound, ID consulted, appreciate help. - Patient prefer following wound care center after discharge, he refused further tests. Qualifiers: Encounter type: subsequent encounter Qualified Code(s): S81.802D - Unspecified open wound, left lower leg, subsequent encounter (4) KASI (acute kidney injury) Current Visit: Yes Status: Acute Assessment and plan: - Likely caused by renal venous congestion due to severe volume overload, continue IV diuretics, give 1 dose of metolazone today. Monitor BMP in a.m. - TAMAR inhibitor on hold per renal. (5) Pulmonary hypertension Current Visit: No Status: Acute Assessment and plan: - Undetermined etiology, most likely secondary to left side heart failure. Continue diuretics. (6) DVT prophylaxis Current Visit: Yes Status: Acute - Time Spent With Patient Total time spent is greater than 50% in coordination of care (as documented) at patient's floor/unit and/or counseling patient: Greater than 35 minutes - Subjective Interval history: Patient reported improved leg and scrotal swelling. - Constitutional Vitals: Temp Pulse Resp BP Pulse Ox 97.5 F L 61 15 118/64 93 01/19/18 14:30 01/19/18 14:30 01/19/18 14:30 01/19/18 14:30 01/19/18 14:30 General appearance: Present: A&O X 3, no acute distress, answers questions appropriately Exam: PHYSICAL EXAMINATION: GENERAL APPEARANCE: The patient is alert, oriented and in no acute distress. HEENT: Head is normocephalic. The sinuses are nontender. Pupils are equal and reactive. The nares are patent. Oropharynx clear without lesions. NECK: Supple without lymphadenopathy. HEART: Regular rate and rhythm. LUNGS: crackles noted bilaterally. ABDOMEN: Soft, nontender, nondistended with good bowel sounds heard. Inguinal area is normal. EXTREMITIES: left leg wound covered with dressing. NEUROLOGICAL: Gross nonfocal. SKIN: Warm and dry without any rash. Internal Medicine: Result - Labs CBC & Chem 7: 01/18/18 05:39 01/19/18 10:39 Labs: BMP 01/19/18 10:39 Sodium 141 Potassium 4.1 Chloride 102 Carbon Dioxide 30 H BUN 55 H Creatinine 2.27 H Glucose 89 Calcium 9.5 Consult Discharge Plan - Plan Referrals: Karma Briseno [Primary Care Provider] -
[2018-01-19] MEDS ORDERED: metOLazone 5 MG TABLET PO ONE (17:00)
[2018-01-19 22:56] LABS: Bilirubin,Urine Negative (Negative); Blood,Urine Negative (Negative); Clarity,Urine Clear (Clear); Color,Urine Yellow (Yellow); Glucose,Urine (UA) Normal (Normal); Ketones,Urine Negative (Negative); Leukocyte Esterase,Urine Negative (Negative); Nitrite,Urine Negative (Negative); Protein,Urine Negative (Neg-Trace); Specific Gravity,Urine 1.018 (1.010-1.025); Urobilinogen,Urine Normal (Normal)
[2018-01-19 22:57] LABS: Bacteria,Urine None Seen per hpf (None-Few); Hyaline Casts,Urine None Seen per lpf (None-Few); Squamous Epithelial Cell,Urine Moderate per lpf (None-Few); WBC,Urine 0-3 per hpf (0-3)
[2018-01-19 23:06] LABS: Sodium, Urine 88.6 mEq/L
[2018-01-20 04:07] LABS: Calcium 8.9 mg/dL (8.6-10.3); Potassium 4.1 mEq/L (3.5-5.1)
[2018-01-20 04:21] LABS: Thyroid Stimulating Hormone 14.611 mcIU/mL (0.340-5.600)
[2018-01-20 04:31] LABS: Folate 16.9 ng/mL (3.0-16.0)
[2018-01-20] MEDS: *HR* Heparin 5,000 UNIT/ML VIAL SQ SCH ×2 (05:41→17:19)
[2018-01-20] MEDS: Aspirin Enteric Coated 81 MG Tablet PO SCH (08:58)
[2018-01-20] MEDS: Loratadine 10 MG TABLET PO SCH (08:59)
[2018-01-20] MEDS: Furosemide 40 MG/4 ML VIAL IVP SCH (08:59)
[2018-01-20 10:21] LABS: Basophils % 0.4 %; Eosinophils # 0.5 K/mcL (0.0-0.6); Eosinophils % 9.7 %; Hematocrit 28.4 % (37.5-50.1); Hemoglobin 8.9 g/dL (12.9-16.9); Immature Granulocytes % 0.2 % (0-4); Lymphocytes # 1.1 K/mcL (0.6-4.6); Lymphocytes % 19.3 %; Mean Corpuscular HGB Conc 31.3 g/dL (31.6-35.5); Mean Corpuscular Hemoglobin 33.7 pg (28.0-33.3); Mean Corpuscular Volume 107.6 fL (83.0-100.0); Mean Platelet Volume 11.3 fL (9.4-12.4); Monocytes # 0.8 K/mcL (0.0-1.3); Monocytes % 13.7 %; Neutrophils # 3.1 K/mcL (1.6-8.9); Platelet Count 124 K/mcL (140-400); Red Blood Count 2.64 M/mcL (4.19-5.50); Red Cell Distribution Width 16.1 % (11.5-14.5); Segmented Neutrophils % 56.7 %
[2018-01-20 10:41] LABS: Calcium 8.8 mg/dL (8.6-10.3); Potassium 3.7 mEq/L (3.5-5.1)
[2018-01-20 11:41] LABS: Magnesium 1.8 mg/dL (1.6-2.6)
--- NOTE | 2018-01-20 11:41 | Infectious Disease Progress No ---
Date of Encounter: 01/20/18 Time of Encounter: 11:39 - Assessment and Plan (1) Leg wound, left Current Visit: No Status: Chronic Location: Anterior left lower leg. Secondary to previous trauma. Wound culture positive for MSSA, PSEA, K. oxytoca, and Proteus mirabilis. --> true infection vs. colonization. Etiology of non-healing status likely multifactorial: venous stasis + possible PAD + other (atypical mycobacterial infection vs. fungal vs. autoimmune). Low index of suspicion for acute infection despite positive wound culture. No surround cellulitis noted. No SIRS criteria. CT scan of the left lower extremity is negative for abscess or osteomyelitis. Recommend dermatology to evaluate for biopsy. Index of suspicion for pyoderma gangrenosum. Send for AFB, fungal, and 16S Ribosomal DNA PCR. Continue to observe off antibiotics. May consider starting topical Bactroban and Gentamicin after evaluated by dermatology. Wound care team consulted for dressing recommendations. Monitor closely for signs of infection. Qualifiers: Encounter type: subsequent encounter Qualified Code(s): S81.802D - Unspecified open wound, left lower leg, subsequent encounter (2) CHF exacerbation Current Visit: Yes Status: Acute Appears improved. Management per the primary and cardiology teams. Qualifiers: Heart failure type: right-sided Qualified Code(s): I50.813 - Acute on chronic right heart failure (3) Scrotal swelling Current Visit: Yes Status: Resolved Resolved. (4) CKD (chronic kidney disease) Current Visit: Yes Status: Acute Monitor renal function and dose-adjust antibiotics. Avoid nephrotoxins as able. Nephrology consulted. Qualifiers: Chronic kidney disease stage: stage 4 (severe) Qualified Code(s): N18.4 - Chronic kidney disease, stage 4 (severe) - Subjective Interval history: Patient seen and examined. No acute events noted overnight. Patient states overall he feels well this morning. Denies any fevers or chills or rigors. Denies any chest pain, shortness of breath, or cough. Does report some shortness of breath on exertion. Denies any nausea, vomiting, diarrhea, or constipation. Denies any abdominal pain or urinary complaints. States his appetite is good. States the genital swelling is nearly gone. Denies any pain at the site of his left lower extremity ulceration. Denies any oral thrush or new skin lesions. Infect Dis PN-Objective Data - Labs CBC & Chem 7: 01/20/18 09:58 01/20/18 09:58 Labs: Laboratory Results - last 24 hr 01/19/18 01/19/18 01/19/18 10:39 18:15 22:00 WBC RBC Hgb Hct MCV MCH MCHC RDW Plt Count MPV Immature Gran % Seg Neutrophils % Lymphocytes % Monocytes % Eosinophils % Basophils % Neutrophils # Lymphocytes # Monocytes # Eosinophils # Basophils # Sodium 141 Potassium 4.1 Chloride 102 Carbon Dioxide 30 H BUN 55 H Creatinine 2.27 H Est GFR ( Amer) 34 L Est GFR (Non-Af Amer) 28 L BUN/Creatinine Ratio 24 Glucose 89 Calculated Osmolality 307 H Calcium 9.5 Creatine Kinase 26 L Vitamin B12 Folate TSH Urine Color Yellow Urine Clarity Clear Urine pH 6.0 Ur Specific [place] 1.018 Urine Protein Negative Urine Glucose (UA) Normal Urine Ketones Negative Urine Blood Negative Urine Nitrite Negative Urine Bilirubin Negative Urine Urobilinogen Normal Ur Leukocyte Esterase Negative Urine Microscopic RBC 3-5 H Urine Microscopic WBC 0-3 Ur Eosinophil Smear 0 Ur Squamous Epith Cells Moderate H Urine Bacteria None Seen Hyaline Casts None Seen Ur Culture Indicated? NO Urine Sodium Urine Urea Nitrogen 01/19/18 01/19/18 01/20/18 22:00 22:00 03:31 WBC RBC Hgb Hct MCV MCH MCHC RDW Plt Count MPV Immature Gran % Seg Neutrophils % Lymphocytes % Monocytes % Eosinophils % Basophils % Neutrophils # Lymphocytes # Monocytes # Eosinophils # Basophils # Sodium 140 Potassium 4.1 Chloride 104 Carbon Dioxide 29 BUN 56 H Creatinine 2.20 H Est GFR ( Amer) 35 L Est GFR (Non-Af Amer) 29 L BUN/Creatinine Ratio 25 Glucose 93 Calculated Osmolality 305 H Calcium 8.9 Creatine Kinase Vitamin B12 Folate TSH 14.611 H Urine Color Urine Clarity Urine pH Ur Specific [place] Urine Protein Urine Glucose (UA) Urine Ketones Urine Blood Urine Nitrite Urine Bilirubin Urine Urobilinogen Ur Leukocyte Esterase Urine Microscopic RBC Urine Microscopic WBC Ur Eosinophil Smear Ur Squamous Epith Cells Urine Bacteria Hyaline Casts Ur Culture Indicated? Urine Sodium 88.6 Urine Urea Nitrogen 559 01/20/18 01/20/18 01/20/18 03:31 09:58 09:58 WBC 5.5 RBC 2.64 L Hgb 8.9 L Hct 28.4 L MCV 107.6 H MCH 33.7 H MCHC 31.3 L RDW 16.1 H Plt Count 124 L MPV 11.3 Immature Gran % 0.2 Seg Neutrophils % 56.7 Lymphocytes % 19.3 Monocytes % 13.7 Eosinophils % 9.7 Basophils % 0.4 Neutrophils # 3.1 Lymphocytes # 1.1 Monocytes # 0.8 Eosinophils # 0.5 Basophils # 0.0 Sodium 140 Potassium 3.7 Chloride 104 Carbon Dioxide 31 H BUN 54 H Creatinine 2.17 H Est GFR ( Amer) 36 L Est GFR (Non-Af Amer) 29 L BUN/Creatinine Ratio 25 Glucose 138 H Calculated Osmolality 307 H Calcium 8.8 Creatine Kinase Vitamin B12 92 L Folate 16.9 H TSH Urine Color Urine Clarity Urine pH Ur Specific [place] Urine Protein Urine Glucose (UA) Urine Ketones Urine Blood Urine Nitrite Urine Bilirubin Urine Urobilinogen Ur Leukocyte Esterase Urine Microscopic RBC Urine Microscopic WBC Ur Eosinophil Smear Ur Squamous Epith Cells Urine Bacteria Hyaline Casts Ur Culture Indicated? Urine Sodium Urine Urea Nitrogen Cultures: Serology 01/19/18 01/19/18 01/19/18 Range/Units 22:00 22:00 22:00 Urine Color Yellow (Yellow) Urine Clarity Clear (Clear) Urine pH 6.0 (5.0-8.0) pH Units Ur Specific [place] 1.018 (1.010-1.025) Urine Protein Negative (Neg-Trace) mg/dL Urine Glucose (UA) Normal (Normal) mg/dL Urine Ketones Negative (Negative) mg/dL Urine Blood Negative (Negative) Urine Nitrite Negative (Negative) Urine Bilirubin Negative (Negative) Urine Urobilinogen Normal (Normal) mg/dL Ur Leukocyte Esterase Negative (Negative) Urine Microscopic RBC 3-5 H (0-3) per hpf Urine Microscopic WBC 0-3 (0-3) per hpf Ur Eosinophil Smear 0 (None Seen) % Ur Squamous Epith Cells Moderate H (None-Few) per lpf Urine Bacteria None Seen (None-Few) per hpf Hyaline Casts None Seen (None-Few) per lpf Ur Culture Indicated? NO (NO) Urine Creatinine Pending Urine Sodium 88.6 mEq/L Urine Urea Nitrogen 559 mg/dL - Impressions Impressions Lower Extremity CT 01/19/18 14:31 IMPRESSION: 1. Extensive subcutaneous edema with ulceration identified along the anterior aspect of the leg at the level of the mid tibial diaphysis. No organized drainable fluid collection identified. Correlate clinically for cellulitis. 2. No acute osseous abnormality and no evidence for osteomyelitis. 3. Severe osteopenia. 4. Severe atherosclerotic disease. 5. Tricompartmental moderate osteoarthritis of the knee. 6. Mild to moderate hindfoot osteoarthritis and severe osteoarthritis of the midfoot. D/ / Rachid Jones MD / Rachid Jones MD Interpreting Provider: Rachid Jones MD Retroperitoneum Ultrasound 01/19/18 20:45 IMPRESSION: Examination is slightly limited due overlying bowel gas. Otherwise no definite abnormality of bilateral kidneys detected. No hydronephrosis. D/ / 01/19/2018 22:59:59 Washington Jarvis MD / shira Interpreting Provider: Washington Jarvis MD Chest X-Ray 01/20/18 07:00 IMPRESSION: Stable chest with no significant interval change of small right pleural effusion and bibasilar opacities. D/ / Lorna Allen MD / Lorna Allen MD Interpreting Provider: Lorna Allen MD Exam - Constitutional Vitals: Temp Pulse Resp BP Pulse Ox 97.7 F 64 16 129/62 92 01/20/18 07:18 01/20/18 07:18 01/20/18 07:18 01/20/18 07:18 01/20/18 07:18 General appearance: average body habitus, cooperative, no acute distress - Head Head exam: Present: atraumatic, normocephalic Additional comments: Multiple skin lesions noted to the left forehead and face. - Eye Eye exam: Present: EOMI, normal appearance, PERRL Pupils: Present: normal accommodation - ENT ENT exam: Present: mucous membranes moist - Neck Neck exam: Present: normal inspection - Respiratory Respiratory exam: Present: CTAB. Absent: rales, respiratory distress, rhonchi, wheezes - Cardiovascular Cardiovascular exam: Present: irregular rhythm, +S1, +S2. Absent: tachycardia - GI/Abdominal GI/Abdominal exam: Present: normal bowel sounds, soft. Absent: distended, tenderness - Extremities Exam Extremities exam: Present: pedal edema (1+ nonpitting edema.). Absent: joint swelling, normal inspection (Venous stasis dermatitis noted to the bilateral lower extremities.), tenderness Additional comments: Dressing to the left lower extremity is clean, dry, and intact. - Neurological Exam Neurological exam: Present: alert, oriented X3, no focal deficits - Psychiatric Psychiatric exam: Present: normal affect, normal mood - Skin Skin exam: Present: dry, intact, normal color, warm Consult Discharge Plan - Plan Referrals: Karma Briseno [Primary Care Provider] - - Attending Attestation I examined this patient and my medical decision-making was reviewed with the Resident Physician. I agree with the documented findings, disposition and treatment plan as described except to the extent set forth below.
--- NOTE | 2018-01-20 11:58 | Cardiology Progress Note ---
Date of Encounter: 01/20/18 Time of Encounter: 10:30 Assessment and Plan (1) CHF exacerbation Current Visit: Yes Status: Acute Per cardiology: -Patient states symptoms are imrpoving today. -TTE with LVEF 60-65%, mild concentric LVH, indeterminate diastolic function, moderately dilated RV with moderate hypokinesis, atypical septal motion with a D shaped septum during diastole consistent with RV volume overload, severe bi- atrial enlargement, mild MR, mildly sclerotic AV leaflets, moderate to severe TR , severe PH, IVC dilated, no segmental wall motion abnormalities. -Volume overloaded on exam, improving. -Chest x-ray with mild pulmonary vascular congestion, small right pleural effusion. -ON IV lasix and metalazone twice weekly. -Currently net negative 3050ml. -Agree with IV diuresis. -Strict I/Os, fluid restriction, daily weights. -Will continue to monitor. Qualifiers: Heart failure type: right-sided Qualified Code(s): I50.813 - Acute on chronic right heart failure (2) KASI (acute kidney injury) Current Visit: Yes Status: Acute Per cardiology: -Creatinine 1.2 08/2017, today 2.17. -Nephrology consulted. -Management per primary and nephrology services. (3) Atrial fibrillation Current Visit: No Status: Chronic Per cardiology: -Known history of a.fib. On beta brad. -CHads 2 vasc score 4 (age, HTN, CHF). Not on anticoagulation due to patient's refusal. Patient educated on greatly increased risk of CVA/embolic event while not on anticoagulation. Patient states understanding -Average HR previous 24 hours noted to be 68, a.fib. 3.6 second pause noted 01/19 1557-patient reports was napping at this time. -Denies dizziness, lightheadedness. -Beta brad stopped, will continue to monitor. Qualifiers: Atrial fibrillation type: chronic Qualified Code(s): I48.2 - Chronic atrial fibrillation Discussion w patient/family: The assessment and plan as outlined above was discussed with the patient who expressed understanding and agreement. All questions were answered. Thank you for involving us in the care of your patient. Please call with any questions. Discussed and reviewed with . Subjective Principal diagnosis: CHF Interval history: Patient reports abdominal girth and swelling better today. Denies shortness of breath. Denies dizziness, lightheadedness. Objective Vital Signs Temperature 97.6 F 01/15/18 11:40 Pulse Rate 68 01/15/18 11:40 Respiratory Rate 18 01/15/18 11:40 Blood Pressure 139/60 01/15/18 11:40 O2 Sat by Pulse Oximetry 94 01/15/18 11:40 Temperature 97.7 F 01/20/18 07:18 Pulse Rate 64 01/20/18 07:18 Respiratory Rate 16 01/20/18 07:18 Blood Pressure 129/62 01/20/18 07:18 O2 Sat by Pulse Oximetry 92 01/20/18 07:18 Oxygen Delivery Oxygen Delivery Room Air General: Conversant, No Apparent Distress HEENT: Atraumatic, Normocephaly, Mucus Membranes Moist Neck: No JVD, Normal carotid pulses Cardiac: Normal S1 and S2, No Murmur, Other (Irregularly irregular) Lungs: Normal Breath Sounds, No Wheeze, Rales, Rhonchi Neuro: Alert and responsive, No focal deficits noted Abdomen: Soft, Non-Tender Skin: No rashes noted on visualized skin Musculoskeletal: No Chest Wall Tenderness Extremities: No Clubbing, No Cyanosis, Normal Pulses, Other (Edema noted to bilateral lower extremities) Results 01/20/18 09:58 01/20/18 09:58 Lab Results Impressions Lower Extremity CT 01/19/18 14:31 IMPRESSION: 1. Extensive subcutaneous edema with ulceration identified along the anterior aspect of the leg at the level of the mid tibial diaphysis. No organized drainable fluid collection identified. Correlate clinically for cellulitis. 2. No acute osseous abnormality and no evidence for osteomyelitis. 3. Severe osteopenia. 4. Severe atherosclerotic disease. 5. Tricompartmental moderate osteoarthritis of the knee. 6. Mild to moderate hindfoot osteoarthritis and severe osteoarthritis of the midfoot. D/ / Rachid Jones MD / Rachid Jones MD Interpreting Provider: Rachid Jones MD Retroperitoneum Ultrasound 01/19/18 20:45 IMPRESSION: Examination is slightly limited due overlying bowel gas. Otherwise no definite abnormality of bilateral kidneys detected. No hydronephrosis. D/ / 01/19/2018 22:59:59 Washington Jarvis MD / shira Interpreting Provider: Washington Jarvis MD Chest X-Ray 01/20/18 07:00 IMPRESSION: Stable chest with no significant interval change of small right pleural effusion and bibasilar opacities. D/ / Lorna Allen MD / Lorna Allen MD Interpreting Provider: Lorna Allen MD Active Medications Acetaminophen (Tylenol) 650 mg PO Q6HR PRN PRN Reason: Mild Pain/Fever Stop: 07/17/18 23:39 Aspirin (Aspirin Ec) 81 mg PO DAILY LONI Stop: 07/18/18 09:01 Last Admin: 01/20/18 08:58 Dose: 81 mg Furosemide (Lasix) 40 mg IVP DAILY LONI Stop: 07/18/18 09:01 Last Admin: 01/20/18 08:59 Dose: 40 mg Heparin Sodium (Porcine) (Heparin) 5,000 unit SQ Q12HR LONI Stop: 07/18/18 06:01 Last Admin: 01/20/18 05:41 Dose: Not Given Loratadine (Claritin) 10 mg PO DAILY LONI Stop: 07/18/18 09:01 Last Admin: 01/20/18 08:59 Dose: 10 mg Metolazone (Zaroxolyn) 5 mg PO 2XW LONI Stop: 07/20/18 09:01 Last Admin: 01/18/18 08:45 Dose: 5 mg Naloxone HCl (Narcan) 0.4 mg IVP Q2MIN PRN PRN Reason: SEE COMMENTS Stop: 07/17/18 23:39 Potassium Chloride (Potassium Chloride) 20 meq PO DAILY LONI Stop: 07/18/18 09:01 Last Admin: 01/20/18 08:59 Dose: 20 meq Laboratory Tests 01/19/18 01/20/18 01/20/18 10:39 03:31 09:58 Hgb 8.9 L Plt Count 124 L Potassium 4.1 Creatinine 2.27 H 2.20 H Magnesium TSH 14.611 H 01/20/18 09:58 Hgb Plt Count Potassium Creatinine Magnesium 1.8 TSH - Imaging and Cardiology Chest Xray: report reviewed Echo: report reviewed - EKG Interpretation EKG results cardiology: other (Telemetry reviewed with average HR previous 24 hours noted to be 68, a.fib. 3.8 second pause 01/19/18 at 1557. PVCs, couplets, triplets noted.) Consult Discharge Plan - Plan Referrals: Karma Briseno [Primary Care Provider] -
[2018-01-20] MEDS: Magnesium Oxide 400 MG TABLET PO SCH (14:55)
--- NOTE | 2018-01-20 15:18 | Nephrology Progress Note ---
<Supriya Bocanegra - Last Filed: 01/21/18 13:13> Date of Encounter: 01/21/18 Time of Encounter: 15:15 - Assessment and Plan (1) KASI (acute kidney injury) Status: Acute Scr staying at 2.2, GFR 29 up from 28 yesterday. Per previous medical records Scr was 1.28 and GFR was 58, will look for signs of renal recovery and be careful with diuresis. Ordered 25 grams of 25% Albumin to be given before next dose of Lasix in the morning. Avoid nephrotoxins. (2) Fluid overload Status: Acute Continue to diurese with Albumin. Is making good output, 1275 in urine and is -3290 this stay. Qualifiers: Hypervolemia type: unspecified Qualified Code(s): E87.70 - Fluid overload, unspecified (3) Leg wound, left Status: Chronic Per ID team. Qualifiers: Encounter type: subsequent encounter Qualified Code(s): S81.802D - Unspecified open wound, left lower leg, subsequent encounter (4) Atrial fibrillation Status: Chronic Per Cardio. Qualifiers: Atrial fibrillation type: chronic Qualified Code(s): I48.2 - Chronic atrial fibrillation Subjective Principal diagnosis: CHF Interval history: Pt seen and examined. Patient is feeling good. Objective - Vital Signs Vital signs: Vital Signs Temp Pulse Resp BP Pulse Ox 01/20/18 12:02 97.5 F L 63 16 116/64 96 01/20/18 07:18 97.7 F 64 16 129/62 92 01/20/18 04:51 97.8 F 67 16 135/69 95 01/20/18 00:23 97.8 F 61 16 125/66 94 01/19/18 19:24 97.6 F 70 16 107/41 95 Intake and Output 01/19/18 01/20/18 01/20/18 23:59 07:59 15:59 Intake Total 240 / 240 Output Total 300 / 300 200 / 200 Balance -300 / -300 -200 / -200 240 / 240 Intake: Oral 240 / 240 Output: Urine 300 / 300 200 / 200 Other: Meal Lunch Percent of Meal Consumed 50% Weight 96.8 kg Patient Weight 01/20/18 23:59 Weight 96.8 kg - General Appearance General appearance: Present: frail EENT: Present: ATNC Neck: Present: supple Cardiology: Present: edema (+2 edema noted to entire bilateral extremities, scrotum slightly edematous. ), normal S1, normal S2 (Multiple lesions and discoloration noted to left side of face.) Integumentary: Present: warm and dry, ulcer (Noted to LLE. Bilat lower extremities scaly and ashen. ) Neurologic: Present: alert and oriented x3 Psychiatric: Present: mood/affect appropriate, cooperative - Lab 01/21/18 08:37 01/21/18 08:37 Most recent lab results Calcium 8.8 mg/dL (8.6-10.3) 01/20/18 09:58 Magnesium 1.8 mg/dL (1.6-2.6) 01/20/18 09:58 Urine Creatinine 81 mg/dL 01/19/18 22:00 Urine Sodium 88.6 mEq/L 01/19/18 22:00 Consult Discharge Plan - Plan Instructions: Metolazone (By mouth), Furosemide (By mouth), Heart Failure (DC) , Chronic Kidney Disease (DC) Referrals: Checo Romo MD [Non-Partnered Physician] - 01/26/18 10:30 am Karma Briseno [Primary Care Provider] - 01/27/18 11:00 am Domingo Mae DO [Partnered Physician] - 01/26/18 11:00 am Adalberto Turcios MD [Partnered Physician] - (Please call the office on Thursday morning for to verify follow-up appointment.) Prescriptions: Furosemide [Lasix] 40 mg PO DAILY #30 tablet metOLazone [Zaroxolyn] 5 mg PO 2XW #10 tablet <Adalberto Turcios - Last Filed: 02/07/18 23:56> Date of Encounter: 01/21/18 Objective - Lab 01/22/18 06:17 01/22/18 06:17 Most recent lab results Calcium 9.3 mg/dL (8.6-10.3) 01/22/18 06:17 Magnesium 1.8 mg/dL (1.6-2.6) 01/20/18 09:58 Urine Creatinine 81 mg/dL 01/21/18 08:25 Urine Sodium 88.6 mEq/L 01/19/18 22:00 - Attending Attestation I examined this patient and my medical decision-making was reviewed with the Resident Physician/SUPERVISOR TITLE. I agree with the documented findings, disposition and treatment plan as described except to the extent set forth below. Pt seen and examined with SCr slightly better despite diuresis. UOP ok above a liter. Will add albumin to enhance diuresis while protecting renal fxn.Continue to avoid nephrotoxins. fluid restriction advised. cpk wnl. urine studies negative so far.
--- NOTE | 2018-01-20 17:43 | Internal Med Progress Note ---
Date of Encounter: 01/20/18 Time of Encounter: 17:37 - Assessment and plan (1) Atrial fibrillation Current Visit: No Status: Chronic Assessment and plan: per hx. On BB at home. Known history of a.fib. On beta brad. CHads 2 vasc score 4 (age, HTN, CHF). Not on anticoagulation due to patient's refusal. 3.6 second pause noted 01/19/18 telemetry review. Home BB stopped with pauses noted on tele. Cardiology following. Continue to monitor on telemetry. 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 Has been seen and local wound care clinic in the past. Wound culture with multiple organisms. Evaluated by infectious disease who noted unclear if true infection versus colonization. Suspect colonization as no signs/symptoms of active infection or cellulitis. Patient declined dermatology evaluation. Prefers to follow up with wound care clinic. Continue local wound care Qualifiers: Encounter type: subsequent encounter Qualified Code(s): S81.802D - Unspecified open wound, left lower leg, subsequent encounter (3) CHF exacerbation Current Visit: Yes Status: Acute Assessment and plan: Presented with acute on chronic lower extremities and scrotum swelling. History of diastolic CHF, on diuretics. Recent TTE revealed LV diastolic dysfunction, biventricular dilation, and the severe pulmonary hypertension. Suspect exacerbation secondary to diet noncompliance as patient reported admitted he has been taking high salt diet recently. Continue IV Lasix, metolazone. Daily weights. Strict I's and O's. Low-sodium diet. Education provided per CHF nurse navigator. Cardiology following. Qualifiers: Heart failure type: right-sided Qualified Code(s): I50.813 - Acute on chronic right heart failure (4) KASI (acute kidney injury) Current Visit: Yes Status: Acute Assessment and plan: Secondary to acute CHF exacerbation with IV diuresis. Renal function slowly improving. Continue to monitor renal function closely with continued IV diuresis. Nephrology following. (5) Pulmonary hypertension Current Visit: No Status: Acute Assessment and plan: - Undetermined etiology, most likely secondary to left side heart failure. Continue diuretics. (6) DVT prophylaxis Current Visit: Yes Status: Acute Assessment and plan: Heparin - Time Spent With Patient Total time spent is greater than 50% in coordination of care (as documented) at patient's floor/unit and/or counseling patient: - Subjective Interval history: Seen and examined at bedside, says he feels much better today. He feels swelling in his legs significantly improved as well as his breathing. Denies chest pain, no shortness of breath. - Constitutional Vitals: Temp Pulse Resp BP Pulse Ox 97.7 F 56 16 107/48 95 01/20/18 15:55 01/20/18 15:55 01/20/18 15:55 01/20/18 15:55 01/20/18 15:55 General appearance: Present: A&O X 3, no acute distress, answers questions appropriately - Head Head exam: Present: atraumatic, normocephalic - Eye Eye exam: Present: PERRL, conjuntiva pink, sclera anicteric Pupils: Present: PERRL - Neck Neck exam general surgery: Present: supple, trachea midline. Absent: lymphadenopathy - Respiratory Respiratory exam: Present: CTAB. Absent: accessory muscle use, rales, rhonchi, wheezes - Cardiovascular Cardiovascular exam: Present: RRR, +S1, +S2. Absent: diastolic murmur, gallop, rubs, systolic murmur - GI/Abdominal GI/Abdominal exam: Present: normal bowel sounds, soft, no peritoneal signs. Absent: distended, tenderness - Extremities Exam Extremities exam: Present: pedal edema, warm, radial pulses palpable and symmetrical. Absent: calf tenderness, cyanotic - Neurological Exam Neurological exam: Present: CN II-XII intact, oriented X3, no focal deficits. Absent: pronater drift, facial droop, speech deficit - Skin Skin exam: Present: dry - Expanded Skin Exam Full body front and back image: 1 - Chronic left lower extremity wound with dressing clean, dry, intact. Not assessed per patient's request. Internal Medicine: Result - Labs CBC & Chem 7: 01/20/18 09:58 01/20/18 09:58 Labs: Short CBC 01/20/18 Range/Units 09:58 WBC 5.5 (4.3-11.1) K/mcL Hgb 8.9 L (12.9-16.9) g/dL Hct 28.4 L (37.5-50.1) % Plt Count 124 L (140-400) K/mcL Neutrophils # 3.1 (1.6-8.9) K/mcL BMP 01/20/18 01/20/18 03:31 09:58 Sodium 140 140 Potassium 4.1 3.7 Chloride 104 104 Carbon Dioxide 29 31 H BUN 56 H 54 H Creatinine 2.20 H 2.17 H Glucose 93 138 H Calcium 8.9 8.8 Urine 01/19/18 Range/Units 22:00 Urine Color Yellow (Yellow) Urine Clarity Clear (Clear) Urine pH 6.0 (5.0-8.0) pH Units Ur Specific [place] 1.018 (1.010-1.025) Urine Protein Negative (Neg-Trace) mg/dL Urine Glucose (UA) Normal (Normal) mg/dL - Impressions Impressions Lower Extremity CT 01/19/18 14:31 IMPRESSION: 1. Extensive subcutaneous edema with ulceration identified along the anterior aspect of the leg at the level of the mid tibial diaphysis. No organized drainable fluid collection identified. Correlate clinically for cellulitis. 2. No acute osseous abnormality and no evidence for osteomyelitis. 3. Severe osteopenia. 4. Severe atherosclerotic disease. 5. Tricompartmental moderate osteoarthritis of the knee. 6. Mild to moderate hindfoot osteoarthritis and severe osteoarthritis of the midfoot. D/ / Rachid Jones MD / Rachid Jones MD Interpreting Provider: Rachid Jones MD Retroperitoneum Ultrasound 01/19/18 20:45 IMPRESSION: Examination is slightly limited due overlying bowel gas. Otherwise no definite abnormality of bilateral kidneys detected. No hydronephrosis. D/ / 01/19/2018 22:59:59 Washington Jarvis MD / shira Interpreting Provider: Washington Jarvis MD Chest X-Ray 01/20/18 07:00 IMPRESSION: Stable chest with no significant interval change of small right pleural effusion and bibasilar opacities. D/ / Lorna Allen MD / Lorna Allen MD Interpreting Provider: Lorna Allen MD Consult Discharge Plan - Plan Referrals: Checo Romo MD [Non-Partnered Physician] - 01/26/18 10:30 am Karma Briseno [Primary Care Provider] -
[2018-01-21] MEDS: *HR* Heparin 5,000 UNIT/ML VIAL SQ SCH ×2 (03:57→16:59)
[2018-01-21] MEDS: Loratadine 10 MG TABLET PO SCH (07:42)
[2018-01-21] MEDS: Magnesium Oxide 400 MG TABLET PO SCH (07:42)
[2018-01-21] MEDS: metOLazone 5 MG TABLET PO SCH (07:42)
[2018-01-21] MEDS: Aspirin Enteric Coated 81 MG Tablet PO SCH (07:42)
[2018-01-21] MEDS ORDERED: Albumin 25% 25gram/100mL 25 GM/100 ML IV.SOLN IVPB ONE (08:00)
[2018-01-21 09:06] LABS: Hematocrit 30.3 % (37.5-50.1); Hemoglobin 9.5 g/dL (12.9-16.9); Mean Corpuscular HGB Conc 31.4 g/dL (31.6-35.5); Mean Corpuscular Hemoglobin 33.8 pg (28.0-33.3); Mean Corpuscular Volume 107.8 fL (83.0-100.0); Mean Platelet Volume 10.9 fL (9.4-12.4); Platelet Count 134 K/mcL (140-400); Red Blood Count 2.81 M/mcL (4.19-5.50)
[2018-01-21 09:27] LABS: Calcium 9.1 mg/dL (8.6-10.3); Potassium 4.1 mEq/L (3.5-5.1)
[2018-01-21 10:23] LABS: Total Volume 24 Hour,Urine 1.23 Liters (0.80-1.80)
--- NOTE | 2018-01-21 11:46 | Infectious Disease Progress No ---
Date of Encounter: 01/21/18 Time of Encounter: 11:43 - Assessment and Plan (1) Leg wound, left Current Visit: No Status: Chronic Location: Anterior left lower leg. Secondary to previous trauma. Wound culture positive for MSSA, PSEA, K. oxytoca, and Proteus mirabilis. --> true infection vs. colonization. Etiology of non-healing status likely multifactorial: venous stasis + possible PAD + other (atypical mycobacterial infection vs. fungal vs. autoimmune). Low index of suspicion for acute infection despite positive wound culture. No surround cellulitis noted. No SIRS criteria. CT scan of the left lower extremity is negative for abscess or osteomyelitis. Recommend dermatology to evaluate for biopsy. Index of suspicion for pyoderma gangrenosum. Patient refused derm consult, but is willing to go to wound care. Continue to observe off antibiotics. May consider starting topical Bactroban and Gentamicin, but will defer to wound care. Wound care team consulted for dressing recommendations. Monitor closely for signs of infection. No further recommendations from the ID team. Will sign off. Please re-consult if needed. Qualifiers: Encounter type: subsequent encounter Qualified Code(s): S81.802D - Unspecified open wound, left lower leg, subsequent encounter (2) CHF exacerbation Current Visit: Yes Status: Acute Appears improved. Management per the primary and cardiology teams. Qualifiers: Heart failure type: right-sided Qualified Code(s): I50.813 - Acute on chronic right heart failure (3) Scrotal swelling Current Visit: Yes Status: Resolved Resolved. (4) CKD (chronic kidney disease) Current Visit: Yes Status: Acute Monitor renal function and dose-adjust antibiotics. Avoid nephrotoxins as able. Nephrology consulted. Qualifiers: Chronic kidney disease stage: stage 4 (severe) Qualified Code(s): N18.4 - Chronic kidney disease, stage 4 (severe) - Subjective Interval history: Patient seen and examined. No acute events noted overnight. Patient states overall he feels well this morning. Denies any fevers or chills or rigors. Denies any chest pain, shortness of breath, or cough. Does report some shortness of breath on exertion. Denies any nausea, vomiting, diarrhea, or constipation. Denies any abdominal pain or urinary complaints. States his appetite is good. States the genital swelling is nearly gone. Denies any pain at the site of his left lower extremity ulceration. Denies any oral thrush or new skin lesions. Infect Dis PN-Objective Data - Labs CBC & Chem 7: 01/21/18 08:37 01/21/18 08:37 Labs: Laboratory Results - last 24 hr 01/19/18 01/21/18 01/21/18 22:00 08:25 08:37 WBC 6.1 RBC 2.81 L Hgb 9.5 L Hct 30.3 L MCV 107.8 H MCH 33.8 H MCHC 31.4 L RDW 16.0 H Plt Count 134 L MPV 10.9 Sodium Potassium Chloride Carbon Dioxide BUN Creatinine Est GFR ( Amer) Est GFR (Non-Af Amer) BUN/Creatinine Ratio Glucose Calculated Osmolality Calcium Urine Total Volume 1.23 Urine Creatinine 81 81 Ur Creatinine 24 Hour 996 Urine Urea Nitrogen 533 Ur Urea Nitrogen 24 Hr 7 L 01/21/18 08:37 WBC RBC Hgb Hct MCV MCH MCHC RDW Plt Count MPV Sodium 141 Potassium 4.1 Chloride 103 Carbon Dioxide 31 H BUN 50 H Creatinine 2.01 H Est GFR ( Amer) 39 L Est GFR (Non-Af Amer) 32 L BUN/Creatinine Ratio 25 Glucose 87 Calculated Osmolality 305 H Calcium 9.1 Urine Total Volume Urine Creatinine Ur Creatinine 24 Hour Urine Urea Nitrogen Ur Urea Nitrogen 24 Hr Cultures: Serology 01/21/18 01/19/18 01/19/18 Range/Units 08:25 22:00 22:00 Urine Color (Yellow) Urine Clarity (Clear) Urine pH (5.0-8.0) pH Units Ur Specific [place] (1.010-1.025) Urine Protein (Neg-Trace) mg/dL Urine Glucose (UA) (Normal) mg/dL Urine Ketones (Negative) mg/dL Urine Blood (Negative) Urine Nitrite (Negative) Urine Bilirubin (Negative) Urine Urobilinogen (Normal) mg/dL Ur Leukocyte Esterase (Negative) Urine Microscopic RBC (0-3) per hpf Urine Microscopic WBC (0-3) per hpf Ur Eosinophil Smear (None Seen) % Ur Squamous Epith Cells (None-Few) per lpf Urine Bacteria (None-Few) per hpf Hyaline Casts (None-Few) per lpf Ur Culture Indicated? (NO) Urine Total Volume 1.23 (0.80-1.80) Liters Urine Creatinine 81 81 mg/dL Ur Creatinine 24 Hour 996 (800-2000) mg/day Urine Sodium 88.6 mEq/L Urine Urea Nitrogen 533 559 mg/dL Ur Urea Nitrogen 24 Hr 7 L (12-20) g/day 01/19/18 Range/Units 22:00 Urine Color Yellow (Yellow) Urine Clarity Clear (Clear) Urine pH 6.0 (5.0-8.0) pH Units Ur Specific [place] 1.018 (1.010-1.025) Urine Protein Negative (Neg-Trace) mg/dL Urine Glucose (UA) Normal (Normal) mg/dL Urine Ketones Negative (Negative) mg/dL Urine Blood Negative (Negative) Urine Nitrite Negative (Negative) Urine Bilirubin Negative (Negative) Urine Urobilinogen Normal (Normal) mg/dL Ur Leukocyte Esterase Negative (Negative) Urine Microscopic RBC 3-5 H (0-3) per hpf Urine Microscopic WBC 0-3 (0-3) per hpf Ur Eosinophil Smear 0 (None Seen) % Ur Squamous Epith Cells Moderate H (None-Few) per lpf Urine Bacteria None Seen (None-Few) per hpf Hyaline Casts None Seen (None-Few) per lpf Ur Culture Indicated? NO (NO) Urine Total Volume (0.80-1.80) Liters Urine Creatinine mg/dL Ur Creatinine 24 Hour (800-2000) mg/day Urine Sodium mEq/L Urine Urea Nitrogen mg/dL Ur Urea Nitrogen 24 Hr (12-20) g/day Exam - Constitutional Vitals: Temp Pulse Resp BP Pulse Ox 97.4 F L 77 18 131/60 96 01/21/18 11:18 01/21/18 11:18 01/21/18 11:18 01/21/18 11:18 01/21/18 11:18 General appearance: average body habitus, cooperative, no acute distress - Head Head exam: Present: atraumatic, normocephalic. Absent: normal inspection ( Multiple skin lesions noted to the left face and head.) - Eye Eye exam: Present: EOMI, normal appearance, PERRL Pupils: Present: normal accommodation - ENT ENT exam: Present: mucous membranes moist - Neck Neck exam: Present: normal inspection - Respiratory Respiratory exam: Present: CTAB. Absent: rales, respiratory distress, rhonchi, wheezes - Cardiovascular Cardiovascular exam: Present: RRR, +S1, +S2 - GI/Abdominal GI/Abdominal exam: Present: normal bowel sounds, soft. Absent: distended, tenderness - Extremities Exam Extremities exam: Present: pedal edema (Trace BLE.). Absent: joint swelling Additional comments: LLE dressing C/D/I. - Neurological Exam Neurological exam: Present: alert, oriented X3, no focal deficits - Psychiatric Psychiatric exam: Present: normal affect, normal mood - Skin Skin exam: Present: dry, intact, normal color, warm Consult Discharge Plan - Plan Referrals: Checo Romo MD [Non-Partnered Physician] - 01/26/18 10:30 am Karma Briseno [Primary Care Provider] -
--- NOTE | 2018-01-21 11:51 | Cardiology Progress Note ---
Date of Encounter: 01/21/18 Time of Encounter: 10:30 Assessment and Plan (1) CHF exacerbation Current Visit: Yes Status: Acute Per cardiology: -Patient states symptoms are imrpoving today. -TTE with LVEF 60-65%, mild concentric LVH, indeterminate diastolic function, moderately dilated RV with moderate hypokinesis, atypical septal motion with a D shaped septum during diastole consistent with RV volume overload, severe bi- atrial enlargement, mild MR, mildly sclerotic AV leaflets, moderate to severe TR , severe PH, IVC dilated, no segmental wall motion abnormalities. -Volume status much improved since admission. -Chest x-ray with mild pulmonary vascular congestion, small right pleural effusion. -ON IV lasix and metalazone twice weekly. -Currently net negative 2320ml. -With improved volume status, will switch lasix to oral. -CHF education reinforced with patient. -Cardiology will sign off and will follow in outpatient setting. Follow up set. Qualifiers: Heart failure type: right-sided Qualified Code(s): I50.813 - Acute on chronic right heart failure (2) KASI (acute kidney injury) Current Visit: Yes Status: Acute Per cardiology: -Creatinine 1.2 08/2017, today 2.01. -Nephrology consulted. -Management per primary and nephrology services. (3) Atrial fibrillation Current Visit: No Status: Chronic Per cardiology: -Known history of a.fib. On beta brad. -CHads 2 vasc score 4 (age, HTN, CHF). Not on anticoagulation due to patient's refusal. Patient educated on greatly increased risk of CVA/embolic event while not on anticoagulation. Patient states understanding -Average HR previous 24 hours noted to be 69, a.fib. 8 second pause noted at 0513. -Last dose of beta blcoker 01/19/18 about 0900. -Denies dizziness, lightheadedness. -Discsussed and reviewed with patient at length regarding significant pauses. Recommend EP evaluation for possible pacemaker plaement due to pauses. Pateint adamently refuses EP consult or evaluation for pacemaker. Patient educated on potential cardiology risks, possible without pacemaker. Patient states understanding and accepts risks. Discussed and reviewed with . -Patient is agreeable for outpatient cardiology follow up. -Highly recommend outpatient sleep study. -Cardiology will sign off and will arrange outpatient follow up. Qualifiers: Atrial fibrillation type: chronic Qualified Code(s): I48.2 - Chronic atrial fibrillation Discussion w patient/family: The assessment and plan as outlined above was discussed with the patient who expressed understanding and agreement. All questions were answered. Thank you for involving us in the care of your patient. Please call with any questions. Discussed and reviewed with . Subjective Principal diagnosis: CHF Interval history: Patient reports abdominal girth and swelling better today. Denies shortness of breath. Denies dizziness, lightheadedness. Objective Vital Signs, Last 4 Hours Temp Pulse Resp BP Pulse Ox 01/21/18 11:18 97.4 F L 77 18 131/60 96 General: Conversant, No Apparent Distress HEENT: Atraumatic, Normocephaly, Mucus Membranes Moist Neck: No JVD, Normal carotid pulses Cardiac: Normal S1 and S2, No Murmur, Other (Irregularly irregular) Lungs: Normal Breath Sounds, No Wheeze, Rales, Rhonchi Neuro: Alert and responsive, No focal deficits noted Abdomen: Soft, Non-Tender Skin: No rashes noted on visualized skin Musculoskeletal: No Chest Wall Tenderness Extremities: No Clubbing, No Cyanosis, Normal Pulses, Other (Mild bilateral pedal edema noted. ) Results 01/21/18 08:37 01/21/18 08:37 Lab Results Active Medications Acetaminophen (Tylenol) 650 mg PO Q6HR PRN PRN Reason: Mild Pain/Fever Stop: 07/17/18 23:39 Aspirin (Aspirin Ec) 81 mg PO DAILY [facility] Stop: 07/18/18 09:01 Last Admin: 01/21/18 07:42 Dose: 81 mg Furosemide (Lasix) 40 mg PO DAILY [facility] Stop: 07/24/18 09:01 Heparin Sodium (Porcine) (Heparin) 5,000 unit SQ Q12HR [facility] Stop: 07/18/18 06:01 Last Admin: 01/21/18 03:57 Dose: Not Given Loratadine (Claritin) 10 mg PO DAILY [facility] Stop: 07/18/18 09:01 Last Admin: 01/21/18 07:42 Dose: 10 mg Magnesium Oxide (Mag-Ox) 400 mg PO DAILY [facility] PRN Reason: Protocol Stop: 07/22/18 12:16 Last Admin: 01/21/18 07:42 Dose: 400 mg Metolazone (Zaroxolyn) 5 mg PO 2XW [facility] Stop: 07/20/18 09:01 Last Admin: 01/21/18 07:42 Dose: 5 mg Naloxone HCl (Narcan) 0.4 mg IVP Q2MIN PRN PRN Reason: SEE COMMENTS Stop: 07/17/18 23:39 Potassium Chloride (Potassium Chloride) 20 meq PO DAILY [facility] Stop: 07/18/18 09:01 Last Admin: 01/21/18 07:42 Dose: 20 meq Laboratory Tests 01/21/18 01/21/18 08:37 08:37 Hgb 9.5 L Plt Count 134 L Creatinine 2.01 H - Imaging and Cardiology Chest Xray: report reviewed Echo: report reviewed - EKG Interpretation EKG results cardiology: other (Telemetry reviewed with average HR previous 12 hours noted to be 69, a.fib. Several pauses noted. Longest, 8 second pause noted at 0513. PVCs noted.) Consult Discharge Plan - Plan Referrals: Checo Romo MD [Non-Partnered Physician] - 01/26/18 10:30 am Karma Briseno [Primary Care Provider] -
[2018-01-21] MEDS ORDERED: Furosemide 40 MG TABLET PO ONE (12:30)
--- NOTE | 2018-01-21 13:03 | Nephrology Progress Note ---
<Supriya Bocanegra - Last Filed: 01/21/18 13:00> Date of Encounter: 01/21/18 Time of Encounter: 13:00 - Assessment and Plan (1) KASI (acute kidney injury) Status: Acute Scr 2.1 GFR 36 both improving. Per previous medical records Scr was 1.28 and GFR was 58, will look for signs of renal recovery and be careful with diuresis. Ordered 25 grams of 25% Albumin to be given before next dose of Lasix in the morning. Avoid nephrotoxins. (2) Fluid overload Status: Acute Continue to diurese with Albumin. Is making good output, 250 noted in output, however 24 hour urine sent to lab unsure if it was counted in cumulative i/o. -2320 this stay. Qualifiers: Hypervolemia type: unspecified Qualified Code(s): E87.70 - Fluid overload, unspecified (3) Leg wound, left Status: Chronic Per ID team. Qualifiers: Encounter type: subsequent encounter Qualified Code(s): S81.802D - Unspecified open wound, left lower leg, subsequent encounter (4) Atrial fibrillation Status: Chronic Per Cardio, was made NPO for pace maker, has refused anticoagulation in the past , RN states he will refuse a pacer placement as well. Qualifiers: Atrial fibrillation type: chronic Qualified Code(s): I48.2 - Chronic atrial fibrillation Subjective Principal diagnosis: CHF Interval history: Pt seen and examined. Patient is feeling good, ready to go home. Objective - Vital Signs Vital signs: Vital Signs Temp Pulse Resp BP Pulse Ox 01/21/18 11:18 97.4 F L 77 18 131/60 96 01/21/18 07:17 98.0 F 75 17 102/57 94 01/21/18 03:25 97.4 F L 71 17 122/61 93 01/20/18 23:28 97.6 F 60 16 130/64 95 01/20/18 18:59 98.2 F 68 16 117/67 92 01/20/18 15:55 97.7 F 56 16 107/48 95 Intake and Output 01/20/18 01/21/18 01/21/18 23:59 07:59 15:59 Intake Total 930 / 930 0 / 0 360 / 360 Output Total 150 / 150 1999 / 1999 Balance 930 / 930 -150 / -150 -1640 / -1640 Intake: Oral 780 / 780 0 / 0 360 / 360 Free Water 150 / 150 Output: Urine 150 / 150 1999 / 1999 Other: Meal Dinner Percent of Meal Consumed 100% Weight 96.2 kg Patient Weight 01/21/18 23:59 Weight 96.2 kg - General Appearance General appearance: Present: well-developed, well-nourished EENT: Present: ATNC Respiratory: Present: clear Cardiology: Present: edema (Moderate edema noted to entire bilateral lower extremities.) Gastrointestinal: Present: normoactive bowel sounds Integumentary: Present: warm and dry Additional Comments: Multiple lesions/growths noted to left side of face, some discoloration noted. Ulcer noted to LLE, chronic. Neurologic: Present: alert and oriented x3 Psychiatric: Present: mood/affect appropriate, cooperative - Lab 01/21/18 08:37 01/21/18 08:37 Most recent lab results Calcium 9.1 mg/dL (8.6-10.3) 01/21/18 08:37 Magnesium 1.8 mg/dL (1.6-2.6) 01/20/18 09:58 Urine Creatinine 81 mg/dL 01/21/18 08:25 Urine Sodium 88.6 mEq/L 01/19/18 22:00 Consult Discharge Plan - Plan Instructions: Metolazone (By mouth), Furosemide (By mouth), Heart Failure (DC) , Chronic Kidney Disease (DC) Referrals: Checo Romo MD [Non-Partnered Physician] - 01/26/18 10:30 am Karma Briseno [Primary Care Provider] - 01/27/18 11:00 am Domingo Mae DO [Partnered Physician] - 01/26/18 11:00 am Adalberto Turcios MD [Partnered Physician] - (Please call the office on Thursday morning for to verify follow-up appointment.) Prescriptions: Furosemide [Lasix] 40 mg PO DAILY #30 tablet metOLazone [Zaroxolyn] 5 mg PO 2XW #10 tablet <Adalberto Turcios - Last Filed: 02/10/18 07:56> Date of Encounter: 01/21/18 Objective - Lab 01/22/18 06:17 04/20/18 06:17 Most recent lab results Calcium 9.3 mg/dL (8.6-10.3) 01/22/18 06:17 Magnesium 1.8 mg/dL (1.6-2.6) 01/20/18 09:58 Urine Creatinine 81 mg/dL 01/21/18 08:25 Urine Sodium 88.6 mEq/L 01/19/18 22:00 - Attending Attestation I examined this patient and my medical decision-making was reviewed with the Resident Physician/BUSINESS SERVICES VICE PRESIDENT. I agree with the documented findings, disposition and treatment plan as described except to the extent set forth below. Pt seen and examined feeling better. SCr improving at 2.1 but not yet at baseline. UOP great >2liters in 24hrs. continue diuresis for now. Avoid nephrotoxins if possible. Exam shows less LE edema bilat
--- NOTE | 2018-01-21 16:20 | Internal Med Progress Note ---
Date of Encounter: 01/21/18 Time of Encounter: 16:17 - Assessment and plan (1) CHF exacerbation Current Visit: Yes Status: Acute Assessment and plan: Presented with acute on chronic lower extremities and scrotum swelling. History of diastolic CHF, on diuretics. Recent TTE revealed LV diastolic dysfunction, biventricular dilation, and the severe pulmonary hypertension. Suspect exacerbation secondary to diet noncompliance as patient reported admitted he has been taking high salt diet recently. Continue IV Lasix, metolazone. Daily weights. Strict I's and O's. Low-sodium diet. Education provided per CHF nurse navigator. Cardiology followed Qualifiers: Heart failure type: right-sided Qualified Code(s): I50.813 - Acute on chronic right heart failure (2) KASI (acute kidney injury) Current Visit: Yes Status: Acute Assessment and plan: Secondary to acute CHF exacerbation with IV diuresis. Renal function slowly improving. Albumin added per nephrology. Continue to monitor renal function closely with continued IV diuresis. Nephrology following. (3) Atrial fibrillation Current Visit: No Status: Chronic Assessment and plan: per hx. On BB at home. Known history of a.fib. On beta brad. CHads 2 vasc score 4 (age, HTN, CHF). Not on anticoagulation due to patient's refusal. 3.6 second pause noted 01/19/18 telemetry review. Home BB stopped with pauses noted on tele. Cardiology following. Continue to monitor on telemetry. Qualifiers: Atrial fibrillation type: chronic Qualified Code(s): I48.2 - Chronic atrial fibrillation (4) Sinus pause Current Visit: Yes Status: Acute Assessment and plan: A second pause noted on telemetry review. Cardiology discussed and reviewed with patient at length regarding significant pauses and the recommendation of EP evaluation for possible pacemaker plaement due to pauses. Pateint adamently refused EP consult or evaluation for pacemaker to Cardiology and myself. 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 Has been seen and local wound care clinic in the past. Wound culture with multiple organisms. Evaluated by infectious disease who noted unclear if true infection versus colonization. Suspect colonization as no signs/symptoms of active infection or cellulitis. Patient declined dermatology evaluation. Prefers to follow up with wound care clinic. Continue local wound care Qualifiers: Encounter type: subsequent encounter Qualified Code(s): S81.802D - Unspecified open wound, left lower leg, subsequent encounter (6) Pulmonary hypertension Current Visit: No Status: Acute Assessment and plan: undetermined etiology, most likely secondary to left side heart failure. Continue diuretics. (7) DVT prophylaxis Current Visit: Yes Status: Acute Assessment and plan: Heparin - Time Spent With Patient Total time spent is greater than 50% in coordination of care (as documented) at patient's floor/unit and/or counseling patient: - Subjective Interval history: Seen and examined at bedside, says he feels much better today. He feels swelling in his legs significantly improved as well as his breathing. Discussed case with cardiology who noted an 8 second positive on telemetry; advised patient of finding and recommendation for EP evaluation for possible pacemaker. Patient adamantly refusing at this time. Says he wants to get better and go home. Said he will follow-up with cardiology outpatient and may consider pacemaker at that time. Advised patient that he is at risk for sudden cardiac ; he verbalizes understanding and except risk. Denies chest pain, no shortness of breath. - Constitutional Vitals: Temp Pulse Resp BP Pulse Ox 97.7 F 63 17 107/60 94 01/21/18 15:58 01/21/18 15:58 01/21/18 15:58 01/21/18 15:58 01/21/18 15:58 General appearance: Present: A&O X 3, no acute distress, answers questions appropriately - Head Head exam: Present: atraumatic, normocephalic - Eye Eye exam: Present: PERRL, conjuntiva pink, sclera anicteric Pupils: Present: PERRL - Neck Neck exam general surgery: Present: supple, trachea midline. Absent: lymphadenopathy - Respiratory Respiratory exam: Present: CTAB. Absent: accessory muscle use, rales, rhonchi, wheezes - Cardiovascular Cardiovascular exam: Present: RRR, +S1, +S2. Absent: diastolic murmur, gallop, rubs, systolic murmur - GI/Abdominal GI/Abdominal exam: Present: normal bowel sounds, soft, no peritoneal signs. Absent: distended, tenderness - Extremities Exam Extremities exam: Present: pedal edema, warm, radial pulses palpable and symmetrical. Absent: calf tenderness, cyanotic - Neurological Exam Neurological exam: Present: CN II-XII intact, oriented X3, no focal deficits. Absent: pronater drift, facial droop, speech deficit - Skin Skin exam: Present: dry, intact Internal Medicine: Result - Labs CBC & Chem 7: 01/21/18 08:37 01/21/18 08:37 Labs: Short CBC 01/21/18 Range/Units 08:37 WBC 6.1 (4.3-11.1) K/mcL Hgb 9.5 L (12.9-16.9) g/dL Hct 30.3 L (37.5-50.1) % Plt Count 134 L (140-400) K/mcL BMP 01/21/18 08:37 Sodium 141 Potassium 4.1 Chloride 103 Carbon Dioxide 31 H BUN 50 H Creatinine 2.01 H Glucose 87 Calcium 9.1 Consult Discharge Plan - Plan Referrals: Checo Romo MD [Non-Partnered Physician] - 01/26/18 10:30 am Karma Briseno [Primary Care Provider] -
[2018-01-22] MEDS: *HR* Heparin 5,000 UNIT/ML VIAL SQ SCH (06:25)
[2018-01-22 06:54] LABS: Hematocrit 29.5 % (37.5-50.1); Mean Corpuscular HGB Conc 30.5 g/dL (31.6-35.5); Mean Corpuscular Volume 108.1 fL (83.0-100.0); Mean Platelet Volume 11.1 fL (9.4-12.4); Platelet Count 123 K/mcL (140-400); Red Blood Count 2.73 M/mcL (4.19-5.50); Red Cell Distribution Width 15.9 % (11.5-14.5)
[2018-01-22 07:12] LABS: Calcium 9.3 mg/dL (8.6-10.3); Potassium 4.3 mEq/L (3.5-5.1)
[2018-01-22] MEDS ORDERED: Furosemide 40 MG TABLET PO SCH (09:00)
[2018-01-22] MEDS: Loratadine 10 MG TABLET PO SCH (10:36)
[2018-01-22] MEDS: Magnesium Oxide 400 MG TABLET PO SCH (10:36)
[2018-01-22] MEDS: Aspirin Enteric Coated 81 MG Tablet PO SCH (10:36)
--- NOTE | 2018-01-22 11:18 | Nephrology Progress Note ---
Date of Encounter: 01/22/18 Time of Encounter: 09:15 - Assessment and Plan (1) KASI (acute kidney injury) Status: Acute SCr has been stable if not slightly improved. Renal U/S was negative for Hydronephrosis, though bowel gas somewhat limited it. Would recommend switching over to an oral regimen to help prevent a recurrent of the fluid overload but as to minimize the impact on his renal function. (2) [id number] renal failure Status: Acute See above. He was originally worked up by Dr. Fenton, so I'd rc he follow up with her for nephrology post hospital follow up. Qualifiers: Acute renal failure type: unspecified Chronic kidney disease stage: stage 3 (moderate) Qualified Code(s): N17.9 - Acute kidney failure, unspecified; N18.3 - Chronic kidney disease, stage 3 (moderate); N18.3 - Chronic kidney disease, stage 3 (moderate) (3) Fluid overload Status: Acute Pros and Cons of diuetics were discussed and the SE profile. His eGFR has improved with diuretic use, which is reassuring. Qualifiers: Hypervolemia type: unspecified Qualified Code(s): E87.70 - Fluid overload, unspecified Subjective Principal diagnosis: CHF Interval history: Pt was s/e earlier in the day. He did not affirm N/V/D or CP. His shortness of breath, he described, was improved. His PCP is in [facility]. He denied having a FHx of ESRD or taking OTC NSAIDs. He requested to discharge today. Objective - Vital Signs Vital signs: Vital Signs Temp Pulse Resp BP Pulse Ox 01/22/18 07:37 97.5 F L 81 18 132/79 90 01/22/18 03:59 98.1 F 65 16 125/62 92 01/21/18 23:32 98.1 F 75 16 119/48 93 01/21/18 18:50 97.7 F 71 16 125/56 95 01/21/18 15:58 97.7 F 63 17 107/60 94 01/21/18 11:18 97.4 F L 77 18 131/60 96 Intake and Output 01/21/18 01/22/18 01/22/18 23:59 07:59 15:59 Intake Total 640 / 640 Output Total 475 / 475 300 / 300 100 / 100 Balance 165 / 165 -300 / -300 -100 / -100 Intake: Oral 640 / 640 Output: Urine 475 / 475 300 / 300 100 / 100 Other: Meal Dinner Percent of Meal Consumed 85% Stool Size Moderate Stool Consistency soft # Bowel Movements 1 Weight 96.1 kg Patient Weight 01/22/18 23:59 Weight 96.1 kg - General Appearance General appearance: Present: well-developed, well-nourished, appears started age EENT: Present: ATNC, PERRL, mucous membranes moist Neck: Present: adenopathy Respiratory: Present: clear Cardiology: Present: edema (appears to have chronic LE 1+ pretibial pitting edema b/l), normal S1, normal S2 Gastrointestinal: Present: normoactive bowel sounds, no tenderness, no masses Integumentary: Present: warm and dry Additional Comments: Large facial corns Neurologic: Present: no focal deficit, no asterixis Musculoskeletal: Present: no deformities, no erythema, no clubbing Psychiatric: Present: mood/affect appropriate, cooperative - Lab 01/22/18 06:17 01/22/18 06:17 Most recent lab results Calcium 9.3 mg/dL (8.6-10.3) 01/22/18 06:17 Magnesium 1.8 mg/dL (1.6-2.6) 01/20/18 09:58 Urine Creatinine 81 mg/dL 01/21/18 08:25 Urine Sodium 88.6 mEq/L 01/19/18 22:00 Consult Discharge Plan - Plan Instructions: Metolazone (By mouth), Furosemide (By mouth), Heart Failure (DC) , Chronic Kidney Disease (DC) Referrals: Checo Romo MD [Non-Partnered Physician] - 01/26/18 10:30 am Karma Briseno [Primary Care Provider] - 01/27/18 11:00 am Domingo Mae DO [Partnered Physician] - 01/26/18 11:00 am Adalberto Turcios MD [Partnered Physician] - (Please call the office on Thursday morning for to verify follow-up appointment.) Prescriptions: Furosemide [Lasix] 40 mg PO DAILY #30 tablet metOLazone [Zaroxolyn] 5 mg PO 2XW #10 tablet
[2018-01-22 11:27] VITALS: BP 137/63
--- NOTE | 2018-01-22 14:33 | Discharge Summary ---
- NOTES TO OUTPATIENT PROVIDER Notes to Outpatient Provider: Recommend repeat BMP within 1 week Orders not resulted at time of discharge: Pending orders 01/23/18 04:00 BMP [Basic Metabolic Panel] AM 0400 Complete Blood Count w/o Diff [HEME] AM 0400 01/24/18 04:00 BMP [Basic Metabolic Panel] AM 0400 Complete Blood Count w/o Diff [HEME] AM 04001/25/18 04:00 BMP [Basic Metabolic Panel] AM 0400 Complete Blood Count w/o Diff [HEME] AM 0400 01/26/18 04:00 BMP [Basic Metabolic Panel] AM 0400 Complete Blood Count w/o Diff [HEME] AM 0400 Date of Encounter: 01/22/18 Time of Encounter: 14:33 - Discharge Diagnosis (1) CHF exacerbation Priority: Primary Status: Acute Comments: Presented with acute on chronic lower extremities and scrotum swelling. History of diastolic CHF, on diuretics. Recent TTE revealed LV diastolic dysfunction, biventricular dilation, and the severe pulmonary hypertension. Suspect exacerbation secondary to diet noncompliance as patient reported admitted he has been taking high salt diet recently. Diuresed well with IV Lasix; - 4 liters. Discharge home on Lasix 40 mg daily with Zaroxolyn twice a week. Education provided per CHF nurse navigator. Cardiology followed Qualifiers: Heart failure type: right-sided Qualified Code(s): I50.813 - Acute on chronic right heart failure (2) KASI (acute kidney injury) Priority: Primary Status: Acute Comments: secondary to acute CHF exacerbation with IV diuresis. No known CKD. Renal function slowly improving. Discussed with Dr. Corona (Nephrology) and we will discharge home on 40 mg oral Lasix daily with Zaroxolyn 2 times a week. Will need repeat BMP in 1 week. Follow-up with nephrology outpatient. (3) Atrial fibrillation Priority: Primary Status: Chronic Comments: per hx. On BB at home. Known history of a.fib. On beta brad. CHads 2 vasc score 4 (age, HTN, CHF). Not on anticoagulation due to patient's refusal. Home BB stopped with pauses noted on tele. Cardiology followed Qualifiers: Atrial fibrillation type: chronic Qualified Code(s): I48.2 - Chronic atrial fibrillation (4) Sinus pause Priority: Primary Status: Acute Comments: 8 second pause noted on telemetry review. Cardiology discussed and reviewed with patient at length regarding significant pauses and the recommendation of EP evaluation for possible pacemaker placement due to pauses. Patient adamantly refused EP consult or evaluation for pacemaker to Cardiology and myself. Patient educated on potential risks including possible without pacemaker; patient verbalizing understanding and accepts risks. He is agreeable to outpatient cardiology follow-up. 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 Has been seen and local wound care clinic in the past. Wound culture with multiple organisms. Evaluated by infectious disease who noted unclear if true infection versus colonization. Suspect colonization as no signs/symptoms of active infection or cellulitis. Patient declined dermatology evaluation. Prefers to follow up with wound care clinic. Resume local wound care as per home schedule. Follow-up with wound clinic outpatient. Qualifiers: Encounter type: subsequent encounter Qualified Code(s): S81.802D - Unspecified open wound, left lower leg, subsequent encounter (6) Pulmonary hypertension Priority: Primary Status: Acute Comments: undetermined etiology, most likely secondary to left side heart failure. Continue diuretics. Follow-up with cardiology outpatient Hospital course: Please see assessment and plan for Hospital course Discharge discussed with: patient (Seen and examined at bedside. Patient states he feels well and wants to go home today. He says swelling is almost completely gone and only has minimal shortness of breath. Discussed again the possibility of an EP consult for pacemaker and patient continues to refuse. He is aware of risk including possible with significant pauses noted on telemetry review. He verbalizes understanding and continues to refuse. Dictated at length regarding importance of low sodium diet and medication compliance.) - Time Spent with Patient Total time spent providing and/or coordinating discharge services: - Discharge Medications Prescriptions: Furosemide [Lasix] 40 mg PO DAILY #30 tablet metOLazone [Zaroxolyn] 5 mg PO 2XW #10 tablet Home Medications: Atenolol [Tenormin] 50 mg PO DAILY 01/11/18 [History] Furosemide [Lasix] 20 mg PO BID 01/11/18 [History] Loratadine [Claritin] 10 mg PO DAILY 01/11/18 [History] hydroCHLOROthiazide [Hydrochlorothiazide] 25 mg PO DAILY 01/11/18 [History] Aspirin Enteric Coated [Aspirin EC] 81 mg PO DAILY 01/15/18 [History] Potassium Chloride [K-Tab ER] 20 meq PO DAILY 01/15/18 [History] Furosemide [Lasix] 40 mg PO DAILY #30 tablet 01/22/18 [Rx] metOLazone [Zaroxolyn] 5 mg PO 2XW #10 tablet 01/22/18 [Rx] Allergies/Adverse Reactions: 3 Allergy/AdvReac Type Severity Reaction Status Date / Time No Known Allergies Allergy Verified 01/11/18 16:00 Date of admission: 01/15/18 23:38 Primary care physician: Karma Briseno Consults: 01/15/18 23:47 Consult to Wound Care [CONS] Routine Reason for Consult: Chronic wound on left leg Call Completed: No 01/17/18 16:37 Consult to Cardiology [CONS] Routine Comment: Consulting Provider: Cardiology [place] Reason for Consult: chf Time Notified: 16:37 Call Completed: Yes 01/18/18 22:01 Consult to Infectious Diseases [CONS] Routine Consulting Provider: Infectious Disease [facility] Reason for Consult: wound culture with multiple organisms Time Notified: 22:01 Call Completed: No Consult to Nephrology [CONS] Routine Consulting Provider: Kidney Kasia/ADIEL/ZACARIAS/ANKIT Reason for Consult: AK I Time Notified: 22:02 Call Completed: No Discharging clinician: Lindy Yusuf Anticipated date of discharge: 01/22/18 - Constitutional Vitals: Temp Pulse Resp BP Pulse Ox 98.2 F 71 19 137/63 93 01/22/18 11:27 01/22/18 11:27 01/22/18 11:27 01/22/18 11:27 01/22/18 11:27 General appearance: Present: A&O X 3, no acute distress, answers questions appropriately - Head Head exam: Present: atraumatic, normocephalic - Eye Eye exam: Present: PERRL, conjuntiva pink, sclera anicteric Pupils: Present: PERRL - Neck Neck exam general surgery: Present: supple, trachea midline. Absent: lymphadenopathy - Respiratory Respiratory exam: Present: CTAB. Absent: accessory muscle use, rales, rhonchi, wheezes - Cardiovascular Cardiovascular exam: Present: irregular rhythm, +S1, +S2. Absent: diastolic murmur, gallop, rubs, systolic murmur - GI/Abdominal GI/Abdominal exam: Present: normal bowel sounds, soft, no peritoneal signs. Absent: distended, tenderness - Extremities Exam Extremities exam: Present: pedal edema, warm, radial pulses palpable and symmetrical. Absent: calf tenderness, cyanotic - Neurological Exam Neurological exam: Present: CN II-XII intact, oriented X3, no focal deficits. Absent: pronater drift, facial droop, speech deficit - Skin Skin exam: Present: dry, intact Additional comments: left side skin cancer with multiple skin tags/horns - Patient Status Disposition: Home, Self-Care Condition: Good Functional capacity at discharge: uses cane/walker Overall status at discharge: patient is progressing back to baseline - Discharge Instructions Instructions: Furosemide (By mouth), Metolazone (By mouth), Heart Failure (DC) , Chronic Kidney Disease (DC) Follow Up With: Checo Romo MD [Non-Partnered Physician] - 01/26/18 10:30 am Karma Briseno [Primary Care Provider] - 01/27/18 11:00 am Adalberto Turcios MD [Partnered Physician] - (Please call the office on Thursday morning for to verify follow-up appointment.) - Diet and Activity Activity: increase activity as tolerated Diet: low salt diet
--- NOTE | 2018-01-22 15:17 | Electrocardiograph Report ---
[place] [id number] Test Date: 2018-01-19 Pat Name: Ferdinand Mazariegos Department: 113 Room: 3B Gender: M Registration Coordinator: : [id number] Requested By: Lindy Yusuf Order Number: [id number] Reading MD: Ludwin Tsai Measurements Intervals Hunters Rate: 55 P: ND: 0 QRS: -48 QRSD: 108 T: 52 QT: 419 QTc: 407 Interpretive Statements ATRIAL FIBRILLATION WITH SLOW VENTRICULAR RESPONSE LOW QRS VOLTAGE PATTERN CONSISTENT WITH PULMONARY DISEASE POSSIBLE INFERIOR MYOCARDIAL INFARCTION, PROBABLY OLD Electronically Signed On 01-22-2018 15:15:53 EDT by Ludwin Tsai
== END 2018-01-22 16:15 | disposition home or self-care (01) | DRG 291 ==
LOC: EMEROO 11:28 → 3BNU 11:28
PROVIDERS: ADMIT Internal Medicine; ATTEND Registered Nurse